=== PATIENT | female | born 1985 | race Caucasian/White ===

== ENCOUNTER 2021-05-17 10:29 | Emergency (ER) | payer OTHER, SELFPAY ==
--- NOTE | ~2021-05-17 | XR_ITS ---
EXAMINATION: XR LUMBOSACRAL SPINE CLINICAL INFORMATION: Pain COMPARISON: Radiographs lumbar spine 04/17/2017 TECHNIQUE: Three views of the lumbosacral spine. FINDINGS: There is normal lumbar segmentation with 5 nonrib-bearing lumbar vertebrae of normal height and normal lumbar lordosis. There is no lumbar vertebral compression, spondylolisthesis, destructive process. There are borderline degenerative disc changes L4-L5 similar to prior study. No interval disc narrowing. No erosive changes. The SI joints and visualized sacrum are unremarkable. XR/XR lumbar spine 2-3V IMPRESSION: Mild degenerative disc changes L4-L5, stable from 04/17/2017.
[2021-05-17 11:01] VITALS: BP 125/84; PULSE 78; RESP 16; TEMP 36.5; O2SAT 99; BMI 28.3
--- NOTE | 2021-05-17 11:13 | ED_ITS ---
HPI - Back Pain/Injury General Chief Complaint: Back Pain/Injury Stated Complaint: back pain Time Seen by Provider: 05/17/21 11:13 Source: patient Mode of arrival: ambulatory Limitations: no limitations History of Present Illness MD elicited complaint: back pain Onset (ago): week(s) (1) Timing: constant Severity: moderate Similar Symptoms Previously: No Quality: dull and aching Location: lumbar spine Radiation: buttocks Exacerbating factors: movement and walking Relieving factors: none Context: unknown Associated symptoms: denies other symptoms Treatments prior to arrival: acetaminophen Related Data Previous Rx's Medication Instructions Recorded cyclobenzaprine 10 mg PO TID PRN #14 tab 05/17/21 ibuprofen 600 mg PO Q6H PRN #30 tab 05/17/21 lidocaine 1 patch TOPICAL DAILY PRN #10 ea 05/17/21 Allergies Allergy/AdvReac Type Severity Reaction Status Date / Time penicillin V Allergy Unknown rash Verified 07/31/19 00:00 Penicillins [PENICILLINS] Allergy Unknown RASH Unverified 08/13/20 18:01 Review of Systems Review of Systems: Constitutional : No Weight loss, No Fever, No Chills, ENT/Mouth : No Hearing loss, No Ear Pain, No Nasal Congestion, No Sinus Pain, No Hoarseness, No sore throat, No Rhinorrhea, No Swallowing Difficulty Cardiovascular : No Chest Pain, No SOB Respiratory : No Cough, No Dyspnea Gastrointestinal : No Nausea, No Vomiting, No Diarrhea, No abdominal Pain, No Hematochezia, No Melena Genitourinary : No Dysuria, No Urinary Frequency, No Hematuria, No Urinary Incontinence, Musculoskeletal : positive back pain Skin : No Skin Lesions, No rash Neuro : No Weakness, No Numbness, No Paresthesias, no loss of bowel or bladder incontinence, no saddle anesthesia [facility] Past Medical History Attestation statement: The following information was validated with the patient. Medical History delivery delivered No known health problems Social History Social History (Updated 05/17/21 @ 11:28 by Makeda Garcia DO) Alcohol intake: never Patient Tobacco Use Status: Never used Tobacco Advance Directives: No Advance Directives Information Provided: No Patient : No Physical Exam Vital Signs: Vital Signs: Last Vital Signs Temp 97.7 F 05/17/21 11:01 Pulse 78 06/21/21 11:01 Resp 16 05/17/21 11:01 BP 125/84 05/17/21 11:01 Pulse Ox 99 05/17/21 11:01 Body Mass Index 28.3 Appearance: Alert. Oriented X3. No acute distress. Eyes: Pupils equal, round and reactive to light. ENT: Pharynx normal. Neck: Normal inspection. Neck supple. CVS: Normal heart rate and rhythm. Pulses normal. Respiratory: No respiratory distress. Breath sounds normal. Abdomen: Soft and non-tender. Back: ttp in lower sacral area no mass/rash noted Skin: Skin warm and dry. Normal skin color. Normal skin turgor. Extremities: No lower extremity edema. No calf ttp L5/5 bilaterally, SILT inner thigh Neuro: Oriented X 3. No motor deficit. No sensory deficit. Course Course Course Narrative: STABLE FOR DC MDM - Back Pain/Injury MDM Narrative Medical decision making narrative: 36 yo female otherwise healthy - here with lower back pain no concerning features at this time, no b/b incontinence, no saddle anesthesia, no AC therapy, no IVDA, NV intact - xrays ordered, IM toradol, lidocaine if negative xrays anticipate PCP referral or PT with low lifting as well as NSAIDs and MRs Discharge Plan Discharge Clinical Impression: Strain of lumbar region Qualifiers: Encounter type: initial encounter Qualified Code(s): S39.012A - Strain of muscle, fascia and tendon of lower back, initial encounter Patient Disposition: Home, Self-Care Instructions: Low Back Strain (ED), Degenerative Disc Disease (ED), Lower Back Exercises (ED) Additional Instructions: return to ED for any worsening symptoms or concerns There are borderline degenerative disc changes L4-L5 similar to prior study. No interval disc narrowing. No erosive changes. The SI joints and visualized sacrum are unremarkable Please get a primary care doctor you may benefit from a physical therapy referral Prescriptions: New cyclobenzaprine 10 mg tablet 10 mg PO TID PRN (Reason: muscle spasm) Qty: 14 RF: 0 lidocaine 4 % adhesive patch,medicated 1 patch topical DAILY PRN (Reason: pain) Qty: 10 RF: 0 ibuprofen 600 mg tablet 600 mg PO Q6H PRN (Reason: pain) Qty: 30 RF: 0 Stand Alone Forms: Work/School Release
[2021-05-17] MEDS: Lidocaine 4 % Patch ADH..PATCH 1 PATCH TRANSDERMA (11:35)
[2021-05-17] MEDS: Ketorolac Tromethamine 60 MG/2 ML VIAL IM (11:35)
== END 2021-05-17 12:02 | disposition home or self-care (01) ==
PROVIDERS: Emergency Provider Emergency Medicine; PCP Internal Medicine
DX: S39.012A Strain of muscle, fascia and tendon of lower back, initial encounter (principal); X58.XXXA Exposure to other specified factors, initial encounter; Y93.9 Activity, unspecified; Y92.9 Unspecified place or not applicable; Y99.9 Unspecified external cause status
CPT/HCPCS: 72100; 96372; 99283; 99284; J1885

== ENCOUNTER 2022-12-08 08:05 | Outpatient (REF) | payer MEDICAID, SELFPAY ==
[2022-12-08 09:26] LABS: Alanine Aminotransferase 14 U/L (0-31); Albumin Level 4.2 g/dL (3.5-5.0); Alkaline Phosphatase 53 U/L (39-117); Anion Gap 9 (12-20); Aspartate Amino Transferase 13 U/L (5-31); Bilirubin Total 0.3 mg/dL (0.0-1.0); Blood Urea Nitrogen 12 mg/dL (9-16); Calcium 9.4 mg/dL (8.4-10.2); Carbon Dioxide 27 mmol/L (22-29); Chloride 107 mmol/L (96-108); Cholesterol 167 mg/dL; Estimated Glomerular Filt Rate > 60; Glucose Fasting 79 mg/dL (60-99); HDL Cholesterol 52 mg/dL; LDL Cholesterol Calculated 101 mg/dl; Potassium 3.8 mmol/L (3.3-5.1); Sodium 139 mmol/L (135-145); Total Protein 7.4 g/dL (6.5-8.0); Triglycerides 74 mg/dL
== END 2022-12-08 08:06 | disposition home or self-care (01) ==
LOC: HO.LAB 08:05
PROVIDERS: PCP Internal Medicine; Visit Provider Internal Medicine
DX: Z00.00 Encounter for general adult medical examination without abnormal findings (principal)
CPT/HCPCS: 36415; 80053; 80061

== ENCOUNTER 2024-02-06 10:28 | Outpatient (AMB) | payer OTHER, SELFPAY ==
--- NOTE | 2024-02-06 10:32 | MHC.OFFWIV ---
Intake Vital Signs 02/06/24 10:51 Height 4 ft 11 in Weight 138 lb BMI 27.9 BP 112/76 Blood Pressure Location Lt brachial Position Sitting Pulse 94 Pulse Source Pulse Oximeter Temp 98.0 F Temp Source Temporal Artery Scan Pulse Oximetry (%) 98 Oxygen Delivery Method Room Air Intake Visit Reasons: EP body rash Intake Note: pt is here today for body rash started monday Patient Tobacco Use Status: Never used Tobacco Allergies penicillin V Allergy (Mild, Verified 02/06/24 10:46) rash Penicillins [PENICILLINS] Allergy (Mild, Verified 02/06/24 10:46) RASH Do you need a note to return to daycare/school/sports/work: No HPI HPI Comments History of Present Illness Details Patient is a 38yo F who presents to office with rash Ongoing since night Intermittent and resolves with Benadryl Located on arms, back, abdomen, legs States makes hands and feet swollen too No SOB, throat tightness, tongue edema, CP Was better yesterday but woke up with it today Unsure about irritants; denies new medicines, foods, perfumes, detergant, lotions, soaps, pets, living situations, bed sheets, travel [facility] Medical History (Updated 02/06/24 @ 11:04 by Irene Bedolla PA-C) Overweight (BMI 25.0-29.9) BRCA positive Surgical History delivery delivered H/O tubal ligation Family History Mother No problems noted. Father Stomach cancer Sister Breast cancer Sister Breast cancer Social History Housing: Apartment Alcohol intake: never Patient Tobacco Use Status: Never used Tobacco e-Cigarette/Vaping Use: Never Used Second Hand Smoke Exposure: No service: No Current occupational status: employed Current occupational exposures/hazards: No Cognitive needs: No Hearing needs: No Vision needs: No Review of Systems Const Denies body aches, Denies chills, Denies fatigue and Denies fever(s) Eyes Denies blurry vision ENT Denies sore throat, Denies throat swelling and Denies tongue swelling Card Denies chest pain and Denies dyspnea Resp Denies cough, Denies dyspnea and Denies wheezing Musc Denies back pain Skin/Breast Reports pruritus and Reports rash Endo Denies fatigue Aller/Immun Denies throat swelling, Denies tongue swelling and Denies wheezing Physical Exam Vital Signs: Last Vital Signs Temp 98.0 F 02/06/24 10:51 Pulse 94 02/06/24 10:51 BP 112/76 02/06/24 10:51 Pulse Ox 98 02/06/24 10:51 Oxygen Delivery Method Room Air 02/06/24 10:51 BMI result Body Mass Index 27.9 General: Non-toxic, NAD. Speaking full sentences. Skin: Warm dry throughout. She has one small erythematous macule to L froearm. Similar 3 slightly larger lesions L posterior lumbar paravertebral region. No lesions to face, hands, abdomen, legs Eye: EOMI HENT: Airway patent. Uvula midline. No pharyngeal erythema or edema. No MANAGER ART. Respiratory: No respiratory distress or stridor MSK: Full ROM extremities. Neurology: A/O. No aphasia or facial droop. Gait without abnormality Psych: Good mood and affect Assessment & Plan Assessment & Plan (1) Urticaria: Code(s): L50.9 - Urticaria, unspecified Plan: Patient seen and evaluated. She has urticaria resolved Pt showed me photos from this am on phone consistent with urticaria of unknown origin. Symptoms resolved with benadryl Discussed prednisone with food avoiding alcohol and nsaids She was educated on ER protocol for SOB, CP, throat tightness, tongue edema etc and is aware to call 911 Patient gave verbal understanding and had no additional questions or concerns at time of discharge All questions answered Medications: New prednisone 40 mg (2 x 20 mg) PO DAILY 8 tabs 0RF Coding Level of Care Code Est Pt Level 3 (30644) Diagnoses Urticaria L50.9
[2024-02-06 10:51] VITALS: BP 112/76; PULSE 94; TEMP 36.7; O2SAT 98; BMI 27.9
== END 2024-02-06 11:17 | disposition home or self-care (01) ==
PROVIDERS: PCP Internal Medicine; Visit Provider Physician Assistant
DX: L50.9 Urticaria, unspecified (principal)
CPT/HCPCS: 99213

== ENCOUNTER 2024-04-17 15:22 | Outpatient (AMB) | payer OTHER, SELFPAY ==
--- NOTE | 2024-04-17 15:25 | MHC.PC.OV ---
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 Accompanied by: Child Allergies penicillin V Allergy (Mild, Verified 04/17/24 15:46) rash Penicillins [PENICILLINS] Allergy (Mild, Verified 04/17/24 15:46) RASH Medication List - Last Reconciled 04/17/24 by Anjana Franco MD No Known Home Meds Tobacco use date assessed: 04/17/24 Dental Screening Dental Screen Date: 04/17/24 Did you have a dental visit in the last 12 months?: Yes Did you have a dental problem in the last 6 months where you did not have access to dental care?: No Was dental information given to patient?: Patient has dentist HPI HPI Comments History of Present Illness Details This is a 38-year-old female that comes for her physical exam. Labs Pap smear was about 2 years ago at [facility]. She wants a 2nd opinion in OBGYN. BRCA positive followed by breast surgeon. No chest pain or shortness on breath. No acute complaint. [facility] Medical History (Updated 04/17/24 @ 15:57 by Anjana Franco MD) Overweight (BMI 25.0-29.9) BRCA positive Surgical History H/O tubal ligation delivery delivered Family History Mother No problems noted. Father Stomach cancer Sister Breast cancer Sister Breast cancer Social History Housing: Apartment Alcohol intake: never Patient Tobacco Use Status: Never used Tobacco e-Cigarette/Vaping Use: Never Used Second Hand Smoke Exposure: No service: No Current occupational status: employed Current occupational exposures/hazards: No Cognitive needs: No Hearing needs: No Vision needs: No Questionnaire PHQ-9 Over the last 2 weeks, how often have you been bothered by any of the following problems? 1. Little interest or pleasure in doing things: not at all 2. Feeling down, depressed, or hopeless: not at all 3. Trouble falling or staying asleep, or sleeping too much: not at all 4. Feeling tired or having little energy: not at all 5. Poor appetite or overeating: not at all 6. Feeling bad about yourself - or that you are a failure or have let yourself or your family down: not at all 7. Trouble concentrating on things, such as reading the newspaper or watching television: not at all 8. Moving or speaking so slowly that other people could have noticed. Or the opposite - being so fidgety or restless that you have been moving around a lot more than usual: not at all 9. Thoughts that you would be better off or of hurting yourself in some way: not at all Total score: 0 Depression Screening Interpretation: Negative Depression Screening Done: Yes 63946 - PHQ-9 Billing: Yes Source: Developed by Drs. Juventino Negron, Layla Cook, Michel Mane and colleagues, with an educational aaron from [employer]. Thrive Questionnaire Date Thrive assessed: 04/17/24 I am a: Patient What is your living situation today?: I have a steady place to live Within the past 12 months, did the food you bought not last and you didn't have the money to get more?: Never true Within the past 12 months, did you worry whether your food would run out before you got money to buy more?: Never true Do you have trouble paying for medicines?: No Do you have trouble getting transportation to medical appointments?: No Do you have trouble paying your heating and electricity bill?: No Do you have trouble taking care of your child, family member or friend?: No Do you have trouble with day-to-day activities such as bathing, preparing meals, shopping, managing finances, etc.?: No Are you currently unemployed and looking for a job?: No Are you interested in more education?: No Please select the resources that you would like help with: None Currently or been in a relationship where the following occur: no concerns reported THRIVE Score: 0 AUDIT C Alcohol Use Questionnaire (AUDIT-C) 1. How often do you have a drink containing alcohol?: Never Total Score: 0 BOLIVAR-7 AMB Questionnaire BOLIVAR-7 Date BOLIVAR - 7 assessed: 04/17/24 Feeling nervous, anxious, or on edge: 1 = Several days Not being able to stop or control worryin = Not at all Worrying too much about different things: 0 = Not at all Trouble relaxin = Several days Being so restless that it is hard to sit still: 0 = Not at all Becoming easily annoyed or irritable: 0 = Not at all Feeling afraid as if something awful might happen: 0 = Not at all Total BOLIVAR-7 score (0-4 normal; 5-9 mild; 10-14 moderate; 15-21 severe): 2 Source: Developed by Drs. Juventino Negron, Layla Cook, Michel Mane and colleagues, with an educational aaron from [employer]. BOLIVAR-7 Assessment Billing BOLIVAR-7 Assessment Tool: BOLIVAR-7 Assessment 50022 Review of Systems Const All systems reviewed & are unremarkable except as noted in HPI and below Eyes Reports no additional complaints, Denies change in vision and Denies other visual disturbances Card Denies chest pain at rest, Denies chest pain with activity, Denies edema, Denies irregular heart rhythm, Denies claudication, Denies dyspnea, Denies dyspnea on exertion, Denies orthopnea, Denies paroxysmal nocturnal dyspnea and Denies slow heart rate Resp Denies cough, Denies dyspnea and Denies dyspnea on exertion GI Denies abdominal pain, Denies change in bowel habits, Denies excessive flatus, Denies nausea and Denies vomiting Denies urinary incontinence, Denies urinary hesitancy and Denies urinary urgency Musc Denies abnormal gait, Denies atrophy, Denies deformity and Denies limited range of motion Skin/Breast Denies bleeding lesions, Denies changing lesions and Denies rash Neuro Denies abnormal gait and Denies lack of coordination Physical exam (Primary Care) Vital Signs: Last Vital Signs BP 102/64 04/17/24 15:27 BMI result Body Mass Index 27.5 Tobacco/Smoking Status: Tobacco use Status Tobacco use date assessed 04/17/24 04/17/24 15:34 Patient Tobacco Use Status Never used Tobacco 04/17/24 15:34 e-Cigarette/Vaping Use Never Used 04/17/24 15:34 PHQ-9: PHQ-9 Score PHQ-9: Total score 0 04/17/24 15:49 Depression Screening Interpretation: Negative Thrive Assessment: Date of Thrive Assessment Date Thrive assessed 04/17/24 04/17/24 15:34 Currently or been in a relationship where the following occur: no concerns reported Const Orientation/consciousness: patient oriented x3 HENDC Head: Yes normal to inspection, Yes normocephalic and Yes atraumatic Ears: external ears normal Eyes General: appearance normal, both eyes and all related structures Eyelids: Yes eyelids normal Conjunctivae: conjunctivae normal Neck Neck: Yes normal visual inspection and Yes supple Resp Effort & Inspection: normal respiratory effort Auscultation: clear to auscultation bilaterally Cardio Jugular venous distension: no JVD Rate: regular rate Rhythm: regular rhythm Heart sounds: S1 normal heart sound present and S2 normal heart sound present GI Inspection: Yes normal to inspection Palpation (GI): Soft to palpation and nontender Auscultation: normal bowel sounds Skin General skin exam: no rashes or lesions noted Neuro General: patient oriented x3 and no focal motor deficits Extrem General: Yes full ROM Psych Appearance: grossly normal Assessment and Plan Assessment & Plan (1) Encounter for physical examination: Code(s): Z00.00 - Encounter for general adult medical examination without abnormal findings Plan: Repeat in a year. Orders: Referrals [facility] PLANNING DIRECTOR Referral Z12.4 - Encounter for screening for malignant neoplasm of cervix, Z15.01 - Genetic susceptibility to malignant neoplasm of breast, Z15.09 - Genetic susceptibility to other malignant neoplasm Coding Level of Care Code Est Pt Prev Care 18-39y(62753) Diagnoses Encounter for physical examination Z00.00 Additional Codes BOLIVAR-7 Assessment Billing - BOLIVAR-7 Assessment Tool: BOLIVAR-7 Assessment 81143 ([id number]) Time Spent (min) 31
[2024-04-17 15:27] VITALS: BP 102/64; BMI 27.5
== END 2024-04-17 16:02 | disposition home or self-care (01) ==
PROVIDERS: PCP Internal Medicine; Visit Provider Internal Medicine
DX: Z00.00 Encounter for general adult medical examination without abnormal findings (principal)
CPT/HCPCS: 99395

== ENCOUNTER 2024-07-31 10:33 | Outpatient (AMB) | payer OTHER, SELFPAY ==
[2024-07-31 11:01] VITALS: BP 104/76; PULSE 61; TEMP 36.8; O2SAT 99; BMI 26.9
--- NOTE | 2024-07-31 11:01 | MHC.OFFWIV ---
Intake Vital Signs 07/31/24 11:01 Height 4 ft 11 in Weight 133 lb BMI 26.9 BP 104/76 Blood Pressure Location Lt brachial Position Sitting Pulse 61 Pulse Source Pulse Oximeter Temp 98.2 F Temp Source Oral Pulse Oximetry (%) 99 Oxygen Delivery Method Room Air Intake Visit Reasons: EP RT hand swelling/pain Intake Note: pt c/o RT hand swelling and pain. Started Monday Patient Tobacco Use Status: Never used Tobacco Allergies penicillin V Allergy (Mild, Verified 07/31/24 11:05) rash Penicillins [PENICILLINS] Allergy (Mild, Verified 07/31/24 11:05) RASH Do you need a note to return to daycare/school/sports/work: Yes HPI EP RT hand swelling/pain HPI Details This note is constructed using voice recognition software. While every effort has been made to ensure accuracy, cafeteria counter attendant errors may have been included. The patient is a 39 year old female who presents to the clinic today with 3 day history of right hand swelling and pain. She denies any known trauma to the area, reports that she woke up with this. She is right-hand dominant, the pain is reported to be in the palm of the right hand with swelling from palm traveling up the 2nd digit. She initially thought it was related to overuse from cutting in cooking, over the pain seemed to not improve despite rest. She denies fever, chills, warmth to the area. [facility] Medical History Overweight (BMI 25.0-29.9) BRCA positive Surgical History H/O tubal ligation delivery delivered Family History Mother No problems noted. Father Stomach cancer Sister Breast cancer Sister Breast cancer Social History Housing: Apartment Alcohol intake: never Patient Tobacco Use Status: Never used Tobacco e-Cigarette/Vaping Use: Never Used Second Hand Smoke Exposure: No service: No Current occupational status: employed Current occupational exposures/hazards: No Cognitive needs: No Hearing needs: No Vision needs: No Review of Systems Const All systems reviewed & are unremarkable except as noted in HPI and below Physical Exam Vital Signs: Last Vital Signs Temp 98.2 F 07/31/24 11:01 Pulse 61 07/31/24 11:01 BP 104/76 07/31/24 11:01 Pulse Ox 99 07/31/24 11:01 Oxygen Delivery Method Room Air 07/31/24 11:01 BMI result Body Mass Index 26.9 Const General: cooperative, healthy appearing, comfortable, no acute distress and well developed Orientation/consciousness: patient oriented x3 Limitations: no limitations Resp Effort & Inspection: normal respiratory effort and able to speak in complete sentences Neuro General: patient oriented x3 Extrem Other: Right hand with obvious swelling to the palmar surface, at the base of the 2nd proximal phalanges. No erythema or warmth. Reduced flexion and extension due to pain. Intact distal neurovascular exam. Strength/filler in strength reduced 4/5. Assessment & Plan Assessment & Plan (1) Right hand pain: Code(s): M79.641 - Pain in right hand Plan: No obvious fracture on x-ray. We will await radiology read. Isidoro wrap applied, advised ice, elevation,, compression. Advised patient to follow up with worsening symptoms or failure to resolve. Advised patient to use NSAIDs [id number] as needed. (2) Swelling of right hand: Code(s): M79.89 - Other specified soft tissue disorders Plan: Appears consistent with likely a strain in the hand, however advised patient to monitor for any signs infection including erythematous streaking, or worsening inflammation or pain. Plan See above for full details and plan. Orders: Orders XR hand RT 2V Today M79.641 - Pain in right hand Coding Level of Care Code Est Pt Level 4 (09386) Diagnoses Right hand pain M79.641 Swelling of right hand M79.89
== END 2024-07-31 16:13 | disposition home or self-care (01) ==
PROVIDERS: PCP Internal Medicine; Visit Provider Registered Nurse
DX: M79.641 Pain in right hand (principal); M79.89 Other specified soft tissue disorders
CPT/HCPCS: 99214

== ENCOUNTER 2024-07-31 11:27 | Outpatient (REF) | payer OTHER, SELFPAY ==
--- NOTE | ~2024-07-31 | XR_ITS ---
EXAMINATION: XR HAND, RIGHT CLINICAL INFORMATION: Pain in right hand. Swelling palmar surface. COMPARISON: None available. TECHNIQUE: PA, lateral, and oblique views of the right hand. FINDINGS: No displaced acute fracture. Alignment is anatomic. Joint spaces appear maintained. Soft tissue swelling more pronounced along the thenar aspect. No abnormal soft tissue calcifications. The bones and soft tissues are normal. No fracture. Alignment is anatomic. Joint spaces are maintained. No erosions or soft tissue calcifications. XR/XR hand RT min 3V IMPRESSION: No displaced acute fractures involving the right hand. Soft tissue swelling more pronounced along the thenar aspect. Electronically signed by: Akhil Dawkins MD 07/31/2024 03:56 PM EDT
== END 2024-07-31 11:28 | disposition home or self-care (01) ==
LOC: HO.HMGCX 11:27
PROVIDERS: PCP Internal Medicine; Visit Provider Registered Nurse
DX: M79.641 Pain in right hand (principal)
CPT/HCPCS: 73130

== ENCOUNTER 2024-12-11 11:53 | Outpatient (AMB) | payer OTHER, SELFPAY ==
--- NOTE | 2024-12-11 11:57 | AM.OFFWIN_ITS ---
Intake Vital Signs 12/11/24 12:06 Weight 133 lb BP 122/70 Blood Pressure Location Lt brachial Position Sitting Pulse 100 Pulse Source Pulse Oximeter Temp 99.8 F Temp Source Oral Pulse Oximetry (%) 97 Oxygen Delivery Method Room Air Intake Visit Reasons: EP cough, fever, mid back pain Intake Note: Patient here for cough, fever, chest tightness and headaches that started monday. Patient Tobacco Use Status: Never used Tobacco Allergies penicillin V Allergy (Mild, Verified 12/11/24 12:06) rash Penicillins [PENICILLINS] Allergy (Mild, Verified 12/11/24 12:06) RASH Do you need a note to return to daycare/school/sports/work: Yes HPI HPI Comments History of Present Illness Details She presents to office with cough since Monday She has lung pain, headache Fever Monday//Monday; none today No congestion, St + body aches and fatigue She is unsure about sick contacts Patient has tried cold and flu OTC medicine, ibuprofen PFSH Medical History Overweight (BMI 25.0-29.9) BRCA positive Surgical History H/O tubal ligation delivery delivered Family History Mother No problems noted. Father Stomach cancer Sister Breast cancer Sister Breast cancer Social History Housing: Apartment Alcohol intake: never Patient Tobacco Use Status: Never used Tobacco e-Cigarette/Vaping Use: Never Used Second Hand Smoke Exposure: No service: No Current occupational status: employed Current occupational exposures/hazards: No Cognitive needs: No Hearing needs: No Vision needs: No Review of Systems Const Reports chills, Reports fatigue, Reports fever(s), Reports headache(s) and Reports poor appetite Eyes Denies change in vision ENT Denies dizziness, Denies otalgia, Reports headache(s) and Denies sore throat Card Denies chest pain and Denies syncope Resp Reports chest congestion, Reports cough and Reports pain with cough GI Denies abdominal pain Musc Reports myalgias Neuro Denies dizziness, Denies syncope and Reports headache(s) Endo Reports fatigue Physical Exam Vital Signs: Last Vital Signs Temp 99.8 F 12/11/24 12:06 Pulse 100 12/11/24 12:06 BP 122/70 12/11/24 12:06 Pulse Ox 97 12/11/24 12:06 Oxygen Delivery Method Room Air 12/11/24 12:06 General: Non-toxic, NAD. Speaking full sentences. Skin: Warm dry throughout Eye: EOMI HENT: Airway patent. Uvula midline. No pharyngeal erythema or edema. No DIRECT SUPPORT STAFF MEMBER. Bilateral canals clear. TM non-erythematous, non-bulging. No TM perforation or hemotympanum noted. Respiratory: + crackles L base. No wheezes Cardiac: RRR. No murmur MSK: Full ROM extremities. Neurology: Alertt. No aphasia or facial droop. Gait without abnormality Psych: Good mood and affect Assessment & Plan Assessment & Plan (1) Community acquired bacterial pneumonia: Code(s): J15.9 - Unspecified bacterial pneumonia Plan: Patient seen and evaluated. I auscultated crackles at L base Will tx with doxycycline; with food. Advised she should have improved symptoms and if persistent fever or worsening symtoms, be re-evaluated We discussed maybe needing chest xray if not resolved Any CP, SOB go to ER Patient gave verbal understanding and had no additional questions or concerns at time of discharge All questions answered Medications: New doxycycline hyclate 100 mg PO BID 20 tabs 0RF Coding Level of Care Code Est Pt Level 3 (44870) Diagnoses Community acquired bacterial pneumonia J15.9
[2024-12-11 12:06] VITALS: BP 122/70; PULSE 100; TEMP 37.7; O2SAT 97
== END 2024-12-11 12:21 | disposition home or self-care (01) ==
PROVIDERS: PCP Internal Medicine; Visit Provider Physician Assistant
DX: J15.9 Unspecified bacterial pneumonia (principal)

== ENCOUNTER → 2024-12-11 11:53 | Outpatient (BNVA) | payer OTHER, SELFPAY | PROVIDERS: PCP Internal Medicine; Visit Provider Physician Assistant | DX: J15.9 Unspecified bacterial pneumonia (principal) | CPT/HCPCS: 99212 ==

== ENCOUNTER 2025-04-29 09:32 | Outpatient (AMB) | payer OTHER, SELFPAY ==
--- NOTE | 2025-04-29 09:35 | MHC.PC.OV ---
Vital Signs 04/29/25 09:36 Height 4 ft 11 in Weight 134 lb BMI 27.1 BP 116/70 Blood Pressure Location Lt brachial Position Sitting Intake Visit Reasons: Annual Exam Intake Note: Patient here for a physical exam Studio Producer Required: No Accompanied by: Self / Same As Patient Allergies penicillin V Allergy (Mild, Verified 04/29/25 09:50) rash Penicillins [PENICILLINS] Allergy (Mild, Verified 04/29/25 09:50) RASH Medication List - Last Reconciled 04/29/25 by Anjana Franco MD No Known Home Meds Tobacco use date assessed: 04/29/25 Dental Screening Dental Screen Date: 04/29/25 Did you have a dental visit in the last 12 months?: Yes Did you have a dental problem in the last 6 months where you did not have access to dental care?: No Was dental information given to patient?: Patient has dentist HPI HPI Comments History of Present Illness Details The patient is a 39-year-old female presenting for an annual physical examination. She has not had laboratory tests in the past two years and reports a penicillin allergy with rash as the reaction. She is not currently on any medications. The patient underwent tubal ligation following three previous deliveries. Regarding her family history, her father had stomach cancer, and her sisters have had varying experiences with breast cancer. The patient's mood is being managed with therapeutic interventions. She leads a lifestyle free from smoking and alcohol consumption. She has completed an MRI in February, which was interpreted as normal, under ongoing consultation with a breast surgeon due to BRCA positive status. The interval since her last tetanus vaccination exceeds ten years, and she has no current symptoms requiring urgent reevaluation. Updated screening for metabolic and organ function is necessary. Mild major depression is follow by counseling with a PHQ-9 of 4. - Administer tetanus vaccine given uncertainty if it has been more than ten years. - Initiate laboratory tests for glucose, renal function, hepatic function, and lipid profile given the two-year lapse since last testing. - Continued follow-up with breast surgeon after recent breast MRI came back normal. - Follow-up care for depression with a therapist as currently being executed. [facility] Medical History (Updated 04/29/25 @ 10:07 by Anjana Franco MD) Overweight (BMI 25.0-29.9) BRCA positive Surgical History H/O tubal ligation delivery delivered Family History Mother No problems noted. Father Stomach cancer Sister Breast cancer Sister Breast cancer Social History Housing: Apartment Alcohol intake: never Patient Tobacco Use Status: Never used Tobacco e-Cigarette/Vaping Use: Never Used Second Hand Smoke Exposure: No service: No Current occupational status: employed Current occupational exposures/hazards: No Cognitive needs: No Hearing needs: No Vision needs: No Questionnaire PHQ-9 Over the last 2 weeks, how often have you been bothered by any of the following problems? 1. Little interest or pleasure in doing things: not at all 2. Feeling down, depressed, or hopeless: several days 3. Trouble falling or staying asleep, or sleeping too much: several days 4. Feeling tired or having little energy: not at all 5. Poor appetite or overeating: not at all 6. Feeling bad about yourself - or that you are a failure or have let yourself or your family down: several days 7. Trouble concentrating on things, such as reading the newspaper or watching television: several days 8. Moving or speaking so slowly that other people could have noticed. Or the opposite - being so fidgety or restless that you have been moving around a lot more than usual: not at all 9. Thoughts that you would be better off or of hurting yourself in some way: not at all Total score: 4 Depression Screening Interpretation: Positive Depression Screening Follow-up: Existing condition, Community Mental Health Worker F/U and Follow-up Visit Requested Depression Screening Done: Yes 46475 - PHQ-9 Billing: Yes Source: Developed by Drs. Juventino Negron, Layla Cook, Michel Mane and colleagues, with an educational aaron from [employer]. Thrive Questionnaire Date Thrive assessed: 04/23/25 I am a: Patient What is your living situation today?: I have a steady place to live Within the past 12 months, did the food you bought not last and you didn't have the money to get more?: Never true Within the past 12 months, did you worry whether your food would run out before you got money to buy more?: Never true Do you have trouble paying for medicines?: No Do you have trouble getting transportation to medical appointments?: No Do you have trouble paying your heating and electricity bill?: No Do you have trouble taking care of your child, family member or friend?: No Do you have trouble with day-to-day activities such as bathing, preparing meals, shopping, managing finances, etc.?: No Are you currently unemployed and looking for a job?: Yes Are you interested in more education?: Yes Please select the resources that you would like help with: None Currently or been in a relationship where the following occur: I choose not to answer THRIVE Score: 0 AUDIT C Alcohol Use Questionnaire (AUDIT-C) 1. How often do you have a drink containing alcohol?: Never Total Score: 0 Score Reviewed/Action Taken: No BOLIVAR-7 AMB Questionnaire BOLIVAR-7 Date BOLIVAR - 7 assessed: 04/29/25 Feeling nervous, anxious, or on edge: 0 = Not at all Not being able to stop or control worryin = Not at all Worrying too much about different things: 3 = Nearly every day Trouble relaxin = Several days Being so restless that it is hard to sit still: 0 = Not at all Becoming easily annoyed or irritable: 0 = Not at all Feeling afraid as if something awful might happen: 0 = Not at all Total BOLIVAR-7 score (0-4 normal; 5-9 mild; 10-14 moderate; 15-21 severe): 4 Source: Developed by Drs. Juventino Negron, Layla Cook, Michel Mane and colleagues, with an educational aaron from [employer]. BOLIVAR-7 Assessment Billing BOLIVAR-7 Assessment Tool: BOLIVAR-7 Assessment 70034 Review of Systems Const All systems reviewed & are unremarkable except as noted in HPI and below Card Denies chest pain at rest, Denies chest pain with activity, Denies edema, Denies irregular heart rhythm, Denies claudication, Denies dyspnea, Denies dyspnea on exertion, Denies orthopnea, Denies paroxysmal nocturnal dyspnea and Denies slow heart rate Resp Denies cough, Denies dyspnea and Denies dyspnea on exertion GI Denies abdominal pain, Denies change in bowel habits, Denies excessive flatus, Denies nausea and Denies vomiting Denies urinary incontinence, Denies urinary hesitancy and Denies urinary urgency Musc Denies abnormal gait, Denies atrophy, Denies deformity and Denies limited range of motion Skin/Breast Denies bleeding lesions, Denies changing lesions and Denies rash Neuro Denies abnormal gait, Denies behavioral changes, Denies confusion and Denies lack of coordination Psych Denies behavioral changes and Denies confusion Endo Denies cold intolerance Physical exam (Primary Care) Vital Signs: Last Vital Signs BP 116/70 04/29/25 09:36 BMI result Body Mass Index 27.1 Tobacco/Smoking Status: Tobacco use Status Tobacco use date assessed 04/29/25 04/29/25 09:40 Patient Tobacco Use Status Never used Tobacco 04/29/25 09:40 e-Cigarette/Vaping Use Never Used 04/29/25 09:40 PHQ-9: PHQ-9 Score PHQ-9: Total score 4 04/29/25 09:57 Depression Screening Interpretation: Positive Depression Screening Follow-up: Existing condition, Community Mental Health Worker F/U and Follow-up Visit Requested Thrive Assessment: Date of Thrive Assessment Date Thrive assessed 04/23/25 04/29/25 09:40 Currently or been in a relationship where the following occur: I choose not to answer Const General: No confusion Orientation/consciousness: patient oriented x3 and No confusion HENMT Head: Yes normal to inspection, Yes normocephalic and Yes atraumatic Ears: external ears normal Eyes General: appearance normal, both eyes and all related structures Eyelids: Yes eyelids normal Conjunctivae: conjunctivae normal Neck Neck: Yes normal visual inspection and Yes supple Resp Effort & Inspection: normal respiratory effort Auscultation: clear to auscultation bilaterally Cardio Jugular venous distension: no JVD Rate: regular rate Rhythm: regular rhythm Heart sounds: S1 normal heart sound present and S2 normal heart sound present GI Inspection: Yes normal to inspection Palpation (GI): Soft to palpation and nontender Auscultation: normal bowel sounds Skin General skin exam: no rashes or lesions noted Neuro General: patient oriented x3, no focal motor deficits and No confusion Extrem General: Yes full ROM Psych Appearance: grossly normal Immunizations Boostrix Tdap 2.5 Lf unit-8 mcg-5 Lf/0.5 mL intramuscular syringe Performing Provider: Anjana Franco MD Performing [facility] [place] [facility] Administered by: CORINNA Terry on 04/29/25 10:01 Dose Route Admin Location Dispensed Lot Number Expiration Date [facility] Communications Designer 0.5 mL IM Right Deltoid 0.5 mL [id number] 07/25/27 [id number] [employer] VIS Given Date VIS Provided VIS Publication Date 04/29/25 Single Vaccine 24 Eligibility Eligibility Date Funding Source Not [facility] Eligible 04/29/25 Private Coding Level of Care Code Est Pt Prev Care 18-39y(25322) Diagnoses Encounter for physical examination Z00.00 Mild major depression F32.0 Additional Codes PHQ-9 - 92683 - PHQ-9 Billing: Yes ([id number]) BOLIVAR-7 Assessment Billing - BOLIVAR-7 Assessment Tool: BOLIVAR-7 Assessment 04914 ([id number]) Time Spent (min) 30 Assessment & Plan Assessment & Plan (1) Encounter for physical examination: Code(s): Z00.00 - Encounter for general adult medical examination without abnormal findings Category: Medical (2) Mild major depression: Comment: Follow by counseling Code(s): F32.0 - Major depressive disorder, single episode, mild Category: Medical Plan In preparation for ongoing health maintenance, a tetanus vaccine has been scheduled given the uncertainty of recent administration. Initiated laboratory tests including glucose, renal and liver function, and lipid profiles due to a two-year lapse in routine screening. Depression remains under therapeutic supervision. No signs of recurrence were noted in her recent breast MRI, maintaining follow-up with her surgeon. Patient remains committed to her neurological health through regular therapy sessions. Patient was informed and verbally consented to the use of an ambient scribe for clinic note documentation during this visit. During the visit, I discussed the importance of continued health maintenance including potential update for the tetanus vaccine since the timeline since last administration is uncertain. I ordered routine lab work including lipid profiles, glucose, renal and hepatic function tests for thorough evaluation due to the considerable time since last completed. The patient will remain under the care of her therapist for ongoing mild depression. We conversed about the risks of neglecting routine screenings particularly in the context of family cancer history and discussed maintaining follow-up appointments with her breast surgeon following standard procedures and reinforcing the necessity of routine surveillance. Orders: Orders TDaP Immunization Today Z23 - Encounter for immunization Lipid Panel Today Z00.00 - Encounter for general adult medical examination without abnormal findings Comprehensive [place]. Panel Fast Today Z00.00 - Encounter for general adult medical examination without abnormal findings Patient Instructions: - Schedule and receive a tetanus vaccine booster. - Complete the laboratory tests for glucose, renal, liver, and cholesterol with fasting for accurate results. - Continue attending regular therapy sessions for depression. - Maintain follow-up appointments and discussions with breast surgeon. - Reach out if experiencing symptoms like chest pain or shortness of breath.
[2025-04-29 09:36] VITALS: BP 116/70; BMI 27.1
--- OUTSIDE RECORDS SUMMARY | 2025-04-29 10:37 | XMS_ITS | Clinical Summary ---
Author Organization [facility] [facility] ity Address [address] [place] [address] Care Team Providers Care Senior Management Consultant Name Role Phone Zulay Hathaway MD Primary Care Provider [phone] Surgical History Surgery Date Site/Laterality Comments SECTION PROCEDURE: HISTORICAL ; COMMENT: x1 Family History Relation Name Status Comments Father dm, htn, o f stomach cancer Mother Alive dm, Social History Tobacco Use Types Packs/Day Years Used Date Smoking Tobacco: Never Alcohol Use Standard Drinks/Week Comments No 0 (1 standard drink = 0.6 oz pur e alcohol) Comments Unknown Sex and Gender Information Value Date Recorded Sex Assigned at Not on file Legal Sex Female 4:45 PM EST Gender Identity Not on file Sexual Orientation Not on file Obstetrics History Plan of Treatment Health Maintenance Due Date Last Done Comments DTaP,Tdap,and Td Vaccines (1 - Tdap) 2006 Hepatitis B Vaccines (1 of 3 - 19+ 3-dose series) 2006 Cervical Cancer Screening: P ap Smear 2008 COVID-19 Vaccine (2023-2 5 season) 2024 Influenza Vaccine (Season Ended) 2025 HIB Vaccines Aged Out No longer eligi ble based on patient's age to complete this topic HPV Vaccines Aged Out No longer eligi ble based on patient's age to complete this topic Hepatitis A Vaccines Aged Out No long er eligible based on patient's age to complete this topic IPV Vaccines Aged Out No longer eligi ble based on patient's age to complete this topic MMR Vaccines Aged Out No longer eligi ble based on patient's age to complete this topic Meningococcal ACWY Vaccine Aged Out N o longer eligible based on patient's age to complete this topic Meningococcal B Vaccine Aged Out No l onger eligible based on patient's age to complete this topic Pneumococcal Vaccine: Pediat rics (0 to 5 Years) and At-Risk Patients (6 to 64 Years) Aged Out No longer eligible b ased on patient's age to complete this topic RSV Immunization Patients Un moreno 20 months Aged Out No longer eligible b ased on patient's age to complete this topic Varicella Vaccines Aged Out No longer eligible based on patient's age to complete this topic Care Teams Senior Management Consultant Relationship Specialty Start Date End Date Zulay Hathaway MD [address] [place] [address] PCP - General Internal Medicine 10/31/13
== END 2025-04-29 10:06 | disposition home or self-care (01) ==
LOC: HO.HMCH 09:33
PROVIDERS: PCP Internal Medicine; Visit Provider Internal Medicine
DX: Z00.00 Encounter for general adult medical examination without abnormal findings (principal); F32.0 Major depressive disorder, single episode, mild; Z23 Encounter for immunization

== ENCOUNTER → 2025-04-29 09:32 | Outpatient (BNVA) | payer OTHER, SELFPAY | PROVIDERS: PCP Internal Medicine; Visit Provider Internal Medicine | DX: Z00.00 Encounter for general adult medical examination without abnormal findings (principal); F32.0 Major depressive disorder, single episode, mild; Z23 Encounter for immunization | CPT/HCPCS: 90471; 90715; 96127; 99395 ==

== ENCOUNTER 2025-05-20 09:47 | Outpatient (REF) | payer OTHER, SELFPAY ==
--- OUTSIDE RECORDS SUMMARY | 2025-05-20 10:42 | XMS_ITS | Clinical Summary ---
Author Organization [employer] Address [address] [place] [address] Care Team Providers Care Chuck Splitter Name Role Phone Unavailable Primary Care Provider Unavailabl e Social History Tobacco Use Types Packs/Day Years Used Date Smoking Tobacco: Never Assessed Comments Unknown Sex and Gender Information Value Date Recorded Sex Assigned at Female 09/26/2022 10:19 AM EDT Legal Sex Female 10:19 AM EDT Gender Identity Not on file Sexual Orientation Not on file Plan of Treatment Health Maintenance Due Date Last Done Comments Depression Screening 1987 Disability Screening 1987 Alcohol/Substance Use Screening 1999 Tobacco Screening 1999 Family Planning (PISQ) 2002 DTaP/Tdap/Td Vaccines (1 - Tdap) 2006 Hepatitis B Vaccines (1 of 3 - 19+ 3-dose series) 2006 Pap Smear 2008 Cervical Cancer Screening 2017 HPV/Cotest 2017 COVID-19 Vaccine (1 - 2023-2 5 season) 2024 Influenza Vaccine (Season Ended) 2025 Zoster Vaccines (1 of 2) 2037 RSV Patients and Pa tients Aged 60 years or older (1 - 1-dose 75+ series) 2062 HIB Vaccines Aged Out No longer eligi [...] patient's age to complete this topic Meningococcal Vaccine Aged Out No cat ivory eligible based on patient's age to complete this topic Pneumococcal Vaccine: Pediat rics (0 to 5 Years) and At-Risk Patients (6 to 49) Years Aged Out No longer eligible b ased on patient's age to complete this topic RSV under 20 months Aged Out No longe r eligible based on patient's age to complete this topic Rotavirus Vaccines Aged Out No longer eligible based on patient's age to complete this topic
[2025-05-20 11:10] LABS: Alanine Aminotransferase 16 U/L (0-31); Albumin Level 4.2 g/dL (3.5-5.0); Alkaline Phosphatase 46 U/L (39-117); Anion Gap 10 (12-20); Aspartate Amino Transferase 18 U/L (5-31); Bilirubin Total 0.3 mg/dL (0.0-1.0); Blood Urea Nitrogen 12 mg/dL (9-16); Carbon Dioxide 25 mmol/L (22-29); Chloride 110 mmol/L (96-108); Cholesterol 162 mg/dL (<200); Estimated Glomerular Filt Rate > 60; Glucose Fasting 83 mg/dL (60-99); HDL Cholesterol 44 mg/dL (>40); LDL Cholesterol Calculated 96 mg/dL (<100); Potassium 3.8 mmol/L (3.3-5.1); Sodium 141 mmol/L (135-145); Triglycerides 110 mg/dL (<150)
== END 2025-05-20 09:48 | disposition home or self-care (01) ==
LOC: HO.LAB 09:47
PROVIDERS: PCP Internal Medicine; Visit Provider Internal Medicine
DX: Z00.00 Encounter for general adult medical examination without abnormal findings (principal)
CPT/HCPCS: 36415; 80053; 80061

== ENCOUNTER 2025-07-10 11:05 | Outpatient (AMB) | payer OTHER, SELFPAY ==
--- NOTE | 2025-07-10 11:30 | AM.OFFWIN_ITS ---
Intake Vital Signs 07/10/25 11:31 Height 4 ft 11 in Weight 134 lb 2 oz BMI 27.1 BP 112/56 L Blood Pressure Location Lt brachial Position Sitting Pulse 106 H Pulse Source Pulse Oximeter Temp 99.1 F Temp Source Oral Pulse Oximetry (%) 99 Oxygen Delivery Method Room Air Intake Visit Reasons: EP-stomach pain, diarrhea, chills Patient Tobacco Use Status: Never used Tobacco Rn Interventional Required: No Is last menstrual period known: Yes Last menstrual period: 07/03/25 Post menopausal: No Patient : No Allergies penicillin V Allergy (Mild, Verified 07/10/25 11:36) rash Penicillins (PENICILLINS) Allergy (Mild, Verified 07/10/25 11:36) RASH HPI HPI Comments History of Present Illness0 Details 40 y/o Female patient who presents to hospital for special surgery walk in clinic with c/o Generalized abdominal pain since yesterday. Reports pain started at right lower abdomen which she attributed to Ovulation pain. She had breakfast and lunch that afternoon then she started experiencing abdominal pain all over abdomen, associated with Nausea, vomiting and diarrhea. She had one episode of Vomiting and diarrhea - symptoms have since subsided but still has discomfort. She has not taken any OTC remedies. [facility] Medical History (Updated 07/10/25 @ 11:56 by Soledad Reid NP) Generalized abdominal pain Overweight (BMI 25.0-29.9) BRCA positive Surgical History H/O tubal ligation delivery delivered Family History Mother No problems noted. Father Stomach cancer Sister Breast cancer Sister Breast cancer Social History Housing: Apartment Alcohol intake: never Patient Tobacco Use Status: Never used Tobacco e-Cigarette/Vaping Use: Never Used Second Hand Smoke Exposure: No Patient : No service: No Current occupational status: employed Current occupational exposures/hazards: No Cognitive needs: No Hearing needs: No Vision needs: No Female Reproductive History Menstrual Date of last menstrual period: 07/03/25 Review of Systems Const All systems reviewed & are unremarkable except as noted in HPI and below Physical Exam Vital Signs: Last Vital Signs Temp 99.1 F 07/10/25 11:31 Pulse 106 H 07/10/25 11:31 BP 112/56 L 07/10/25 11:31 Pulse Ox 99 07/10/25 11:31 Oxygen Delivery Method Room Air 07/10/25 11:31 BMI result Body Mass Index 27.1 Const General: no acute distress Nutritional Appearance: well nourished Orientation/consciousness: patient oriented x3 GI Inspection: Yes Abdominal panniculus present Palpation (GI): Soft to palpation, not firm, Tenderness to palpation present (GI) (Generalized abdominal pain) in the epigastrum, no guarding, not rigid, No hepatosplenomegaly present and no hernias Auscultation: normal bowel sounds Rectal Exam - Female: deferred Neuro General: patient oriented x3, gait normal and moves all extremities Psych Speech and movement: Normal speech and movement present Assessment & Plan Assessment & Plan (1) Generalized abdominal pain: Code(s): R10.84 - Generalized abdominal pain Plan: Ordered Reglan Q6hs Avoid greasy and oily foods. Advance Diet slowly Medications: New metoclopramide HCl (Reglan) 5 mg PO Q6H 20 tabs 0RF R10.84 - Generalized abdominal pain famotidine 20 mg PO BEDTIME 20 tabs 0RF R10.84 - Generalized abdominal pain Coding Level of Care Code Est Pt Level 4 (85805) Diagnoses Generalized abdominal pain R10.84 Time Spent (min) 20
[2025-07-10 11:31] VITALS: BP 112/56; PULSE 106; TEMP 37.3; O2SAT 99; BMI 27.1
--- OUTSIDE RECORDS SUMMARY | 2025-07-10 12:13 | XMS_ITS | Clinical Summary ---
Author Organization [employer] Address [address] [facility] [address] [facility] [address] [place] [address] Care Team Providers Care Language Interpreter Name Role Phone Unavailable Primary Care Provider [...] Tobacco Screening 1999 Family Planning (PISQ) 2002 HPV Vaccines (1 - 3-dose series) 2002 DTaP/Tdap/Td Vaccines (1 - Tdap) 2006 Hepatitis B Vaccines (1 of 3 - 19+ 3-dose series) 2006 Pap Smear 2008 Cervical Cancer Screening 2017 HPV/Cotest 2017 COVID-19 Vaccine ( - 2023-2 5 season) 2024 Influenza Vaccine (#1) 2025 Zoster Vaccines (1 of 2) 2037 [...]
--- OUTSIDE RECORDS SUMMARY | 2025-07-10 12:14 | XMS_ITS | Clinical Summary ---
Author Organization [facility] it Address [address] [place] [address] Care Team Providers Care Slag Dumper Name Role Phone Zulay Hathaway MD Primary Care Provider [phone] Surgical History Surgery Date Site/Laterality Comments SECTION [...] 2008 COVID-19 Vaccine (2023-2 5 season) 2024 Depression Screening 11/27/2024 Influenza Vaccine (#1) 2025 HIB Vaccines Aged Out No longer [...] 5 Years) and At-Risk Patients (6 to 49 Years) Aged Out No longer eligible b ased on patient's age to complete this topic RSV Immunization Patients Un moreno 20 months Aged Out No longer eligible b ased on patient's age to complete this topic Varicella Vaccines Aged Out No longer eligible based on patient's age to complete this topic Care Teams Slag Dumper Relationship Specialty Start Date End Date Zulay Hathaway MD [address] [place] [address] PCP - General Internal Medicine 10/31/13
--- OUTSIDE RECORDS SUMMARY | 2025-07-10 12:14 | XMS_ITS | Clinical Summary ---
Author Organization [facility] Address [address] [place] [address] Phone Care Team Providers Care Detention Sergeant Name Role Phone Anjana Whitley MD Primary Care Provid er Allergies Active Allergy Reactions Criticality Noted Date Comments Penicillins Rash Low 03/04/2025 Medications No known medications Active Problems Problem Noted Date Diagnosed Date BRCA gene mutation positive 03/04/2025 Assessment & Plan (03/04/2025 12:06 PM EDT): Patient reports she tested positive for either BRCA 1 or 2 gene mutation 10 years ago, believes diagnosis was made at [facility] She last saw her medical instrument technician 2 years ago, was getting screening ultrasounds, is done with childbearing (had tubal ligation with last delivery) Patient has discussed risk reducing BSO with her prior medical instrument technician but has no plans in place regarding timing Patient states her last mammogram was in either August or September at [facility], she was seeing a breast specialist but they left the practice and she is unsure if she has been assigned a new provider Recommended referrals [place] [facility] [place]ovarian cancer genetics program, AUTOMOTIVE POWER ELECTRONICS ENGINEER oncology at [place], and breast surgery at [facility], orders placed Records from [place] and [facility] requested Stressed the importance of close monitoring for patient as she is at high risk of developing multiple types of cancer due to her hereditary gene mutation, patient expressed understanding of counseling Family History Medical History Relation Comments Stomach cancer Father Breast cancer Other Breast cancer Sister Relation Status Comments Father Other Alive Sister Social History Tobacco Use Types Packs/Day Years Used Date Smoking Tobacco: Never Smokeless Tobacco: Never Tobacco Cessation:Counseling Given: Not Answered Alcohol Use Standard Drinks/Week Comments Not Currently 0 (1 standard drink = 0.6 oz pur e alcohol) Education Answer Date Recorded Are you interested in more education? Not on ruthie e 11/04/2024 Are you concerned about learning? Not on file 11/04/2024 No 11/04/2024 No 11/04/2024 Digital Access Answer Date Recorded No 11/04/2024 No 11/04/2024 Reliable internet access at home? Not on file 11/04/2024 Device with a working camera? Not on file Comments No Sex and Gender Information Value Date Recorded Sex Assigned at Not on file Legal Sex Female 9:11 PM EDT Gender Identity Not on file Sexual Orientation Not on file Last Filed Vital Signs Vital Sign Reading Time Taken Comments Blood Pressure 108/70 03/04/2025 9:33 AM EDT Pulse 72 07/09/2012 4:11 AM EDT Temperature - - Respiratory Rate - - Oxygen Saturation - - Inhaled Oxygen Concentration - - Weight 59.4 kg (131 lb) 03/04/2025 9:33 AM EDT Height 149.9 cm (4' 11 ) 03/04/2025 9:33 AM EDT Body Mass Index 26.46 03/04/2025 9:33 AM EDT Plan of Treatment Health Maintenance Due Date Last Done Comments Adult Td,Tdap Booster 1987 DEPRESSION SCREENING 1999 HEPATITIS C SCREENING 2005 HIV ONE-TIME SCREENING (18-6 5 YEARS) 2005 SCREENING FOR DIABETES 2022 COVID-19 VACCINE (2023-2 5 season) 2024 PAP SMEAR 03/04/2028 03/04/2025 SMOKING STATUS SCREENING (On ce After 26 Yrs) Completed 03/04/2025 HEPATITIS A VACCINES Aged Out No long er eligible based on patient's age to complete this topic HIB VACCINES Aged Out No longer eligi ble based on patient's age to complete this topic MENINGOCOCCAL VACCINES (ACWY) Aged Out No longer eligible based on patient's age to complete this topic MENINGOCOCCAL VACCINES (B) Aged Out N o longer eligible based on patient's age to complete this topic PNEUMOCOCCAL VACCINES (0-49 years) Aged Out No longer eligible based on patient's age to complete this topic Medical Devices Not on file Procedures Procedure Name Priority Date/Time Associated Diagnosis Comments PAP TEST Routine 03/04/2025 12:00 AM EDT from Last 3 Months or Most Recently Relevant to Health Maintenance Results * Pap Test (03/04/2025 12:00 AM EDT) 03/04/2025 03/05/2025 9:4 9 AM EDT Narrative SEE NARRATIVE - 03/07/2025 2:38 PM EDT [address] [address] Sewing Machine Bobbin Winder: Sb Redding MD AUTOMOTIVE POWER ELECTRONICS ENGINEER Cytology Report FINAL DIAGNOSIS A. PAP SMEAR (THIN PREP) CE: SPECIMEN ADEQUACY: Satisfactory for evaluation; transformation zone present. INTERPRETATION: NEGATIVE FOR INTRAEPITHELIAL LESION OR MALIGNANCY. This specimen was analyzed by the automated ThinPrep Imaging System ([employer].) and the selected gomez were reviewed by a sponsorship coordinator. Electronically Signed Out By: JASMYN Apodaca(ASCP) The Pap test is a screening test primarily for squamous cancers and precursors and has associated false-negative and false-positive results. New technologies such as liquid-based preparations may decrease but will not eliminate all false-negative results. Regular sampling and follow-up of unexplained clinical signs and symptoms are recommended to minimize false negative results. PROCEDURES/ADDENDA HPV Testing (Requested) Ordered Date: 03/05/2025 A. PAP SMEAR (THIN PREP) CE: High-risk HPV Panel w/ extended genotyping NEG HPV 16-NEG HPV 18-NEG HPV 45-NEG HPV 33/58-NEG HPV 31-NEG HPV 56/59/66-NEG HPV 51-NEG HPV 52-NEG HPV 35/39/68-NEG Performed by real-time polymerase chain reaction (PCR) at [facility], [address] [place] [address] using the FDA-approved BD Onclarity HPV Assay with extended genotyping. Uses of the assay in scenarios other than those approved by the FDA should be considered off-label use. The accuracy and precision of this test for all other off-label specimen sources has been verified in the Cytopathology Laboratory of the [facility] and has not been cleared or approved by the U.S. Food and Drug Administration. Clinical correlation is advised. The assay assesses the E6/E7 DNA target and utilizes human beta globin as an internal control. Cytology and HPV testing are screening assays and should not be used as the sole means of detecting cancer. False-positives and false-negatives can occur. CLINICAL HISTORY Date of Last Menstrual Period: 02-20-2025 Other Clinical Conditions: Screening Pap SPECIMEN SOURCE A: PAP SMEAR (THIN PREP) CE Patient Name: NUNU REDDING : 1985 (Age: 39) Sex: F Institution: [facility] Location: [facility] Date of Collection: 03/04/2025 Date of Reported: 03/07/2025 14:38 Results to: Katy Gutierrez Katy Jeffrey MD CYTOLOGY ORDER DENITA Final Result SEE NARRATIVE from Last 3 Months or Most Recently Relevant to Health Maintenance Insurance [facility] Member Subscriber Plan / Payer (Ef fective 2023-Present) Name:VahidNunu Relation to Subscriber:Self Name:TerriurielNunu Payer ID:[id number] Group ID:[id number] Type:Medicaid Address: [place] [id number] [facility] [address] [facility] [place] Care Teams Detention Sergeant Relationship Specialty Start Date End Date Anjana Whitley MD [address] [place], [place] PCP - General Internal Medicine 02/04/25 Additional Source Comments The information contained in this document represents components of the legal health record. It is not the complete legal health record.[facility]
== END 2025-07-10 11:57 | disposition home or self-care (01) ==
PROVIDERS: PCP Internal Medicine; Visit Provider Nurse Practitioner Family
DX: R10.84 Generalized abdominal pain (principal)

== ENCOUNTER → 2025-07-10 11:05 | Outpatient (BNVA) | payer OTHER, SELFPAY | PROVIDERS: PCP Internal Medicine; Visit Provider Nurse Practitioner Family | DX: R10.84 Generalized abdominal pain (principal) | CPT/HCPCS: 99212 ==

== ENCOUNTER 2025-07-10 17:57 | Emergency (ER) | payer OTHER, SELFPAY ==
--- NOTE | ~2025-07-10 | CT_ITS ---
CLINICAL HISTORY: diffuse abd pain CT abdomen and pelvis with contrast Comparison: None provided Findings: Small hiatal hernia. Hepatosplenomegaly. No urolithiasis Diffuse small bowel mural thickening with areas of mucosal hyperemia, concerning for enteritis. No bowel obstruction. Bilateral pelvic varices. Prominent inguinal nodes, may be reactive. Multilevel Schmorl's nodes Heterogeneous bilateral ovarian cysts with punctate calcifications and intermediate densities. Hemorrhagic/complex cyst considering. This may be further evaluated with ultrasound. Anteverted uterus with prominent fluid-filled uterine cavity, may be physiologic. Normal appendix. Scattered colonic diverticulosis without diverticulitis or colitis. No acute fracture. IMPRESSION: 1. Possible mildly diffuse enteritis. 2. Bilateral pelvic varices, question pelvic congestion syndrome. 3. Additional findings described, please see above. This document has been electronically signed by: Gabriel Null MD on 07/11/2025 01:04:16
[2025-07-10 18:18] VITALS: BP 116/60; PULSE 117; RESP 16; TEMP 37.8; O2SAT 100; BMI 27.3
--- NOTE | 2025-07-10 18:20 | ED.ABDPAIN ---
HPI - Abdominal Pain General Chief Complaint: Abdominal Pain Stated Complaint: abd pain Time Seen by Provider: 07/10/25 23:21 Source: patient Mode of arrival: ambulatory Limitations: no limitations History of Present Illness ED Provider: Dr. Kate Miner HPI narrative: Patient comes in the emergency room complaining of diffuse abdominal pain for 1 day, no nausea or vomiting. Patient denies any UTI symptoms, denies flank pain. Denies constipation. Patient denies fever or chills. However, when she arrived to triage, she was told that she has an oral temp of 100.0 degrees F Related Data Previous Rx's ?Medication ?Instructions ?Recorded famotidine 20 mg tablet 20 mg PO BEDTIME #20 tabs 07/10/25 metoclopramide HCl 5 mg tablet 5 mg PO Q6H #20 tabs 07/10/25 (Reglan) Allergies Allergy/AdvReac Type Severity Reaction Status Date / Time penicillin V Allergy Mild rash Verified 07/10/25 18:22 Penicillins (PENICILLINS) Allergy Mild RASH Verified 07/10/25 18:22 Review of Systems Review of Systems Constitutional : No Weight loss, No Fever, No Chills, No Night Sweats, complaining of chronic fatigue ENT/Mouth : No Hearing loss, No Ear Pain, No Nasal Congestion, No Sinus Pain, No Hoarseness, No sore throat, No Rhinorrhea, No Swallowing Difficulty Eyes: No Eye Pain, No Swelling, No Redness, No Foreign Body, No Discharge, No Vision Changes Cardiovascular : No Chest Pain, No SOB, No Dyspnea on Exertion, No Orthopnea, No Edema, No Palpitations Respiratory : No Cough, No Sputum, No Wheezing, No Smoke Exposure, No Dyspnea Gastrointestinal : No Nausea, No Vomiting, No Diarrhea, No Constipation, complaining of diffuse abdominal pain, no hematochezia or melena Genitourinary : Complaining of heavy monthly vaginal bleeding lasting for week and half, No Dysuria, No Urinary Frequency, No Hematuria, No Urinary Incontinence, No Urgency, No Flank Pain, No Urinary Flow Changes, No Hesitancy Musculoskeletal : No joint pain, No Myalgias, No Joint Swelling Skin : No Skin Lesions, No rash Neuro : No Weakness, No Numbness, No Paresthesias, No Loss of Consciousness, No Dizziness, No Headache Psych : No Anxiety/Panic, No Depression, No SI/HI/AH/VH, No Social Issues, Heme/Lymph: No Bruising, No Bleeding,No Lymphadenopathy Endocrine : No Polyuria, No Polydipsia, No Temperature Intolerance [facility] Past Medical History Medical History Generalized abdominal pain Overweight (BMI 25.0-29.9) BRCA positive Surgical History H/O tubal ligation delivery delivered Family History Family History Mother No problems noted. Father Stomach cancer Sister Breast cancer Sister Breast cancer Social History Social History Housing: Apartment Alcohol intake: never Patient Tobacco Use Status: Never used Tobacco e-Cigarette/Vaping Use: Never Used Second Hand Smoke Exposure: No Advance Directives: No Advance Directives Information Provided: Yes Do you have a plan to hurt others: No Plan service: No Current occupational status: employed Current occupational exposures/hazards: No Cognitive needs: No Hearing needs: No Vision needs: No Physical Exam ED Exam Exam: Appearance: Alert. Oriented X3. No acute distress. Eyes: Pupils equal, round and reactive to light. ENT: Pharynx normal. Neck: Normal inspection. Neck supple. No lymph nodes noted. No crepitus CVS: Normal heart rate and rhythm. Pulses normal. Normal S1 and S2 Respiratory: No respiratory distress. Breath sounds normal. No Wheezing. No rales Abdomen: Soft , discomfort to palpation in all quadrants, no rebound or guarding Skin: Skin warm and dry. Patient looks diffusely pale Extremities: No lower extremity edema. No Lacerations. No Rash Neuro: Oriented X 3. No motor deficit. No sensory deficit. Moving all extremities. No slurred speech. CN 2 through 12 grossly intact Psych: calm, cooperative, normal affect Vital Signs: Vital Signs - 24 hr 07/10/25 18:18 07/10/25 23:57 Temperature 100.0 F 98.1 F Pulse Rate 117 H 91 Respiratory Rate 16 20 Blood Pressure 116/60 99/55 L Pulse Oximetry 100 100 Oxygen Delivery Method Room Air Room Air BMI result Body Mass Index 27.3 Course Course Course Narrative: This is an RME: Additional HPI, ROS, PE not included below will be deferred to primary provider. RME assessment and note performed by: Sully Vargas PA-C This is a 31-cvio-gcn-female, with no known medical problems, who presents emergency department with concerns of diffuse abdominal pain which started last night. Denies any nausea, vomiting, no urinary symptoms, last bowel movement was today, last menstrual period was on 07/03 No urinary symptoms, no abnormal vaginal discharge. Patient's temperature a 100? F orally, tachycardia at 117bpm. Plan: Labs, UA, further ER evaluation needed. Medical Decision Making Medical Decision Making MDM Narrative: Patient's hematology shows a white blood cell count 16.6, a hemoglobin of 7.1, hematocrit 24, platelets normal, occult blood test negative -I discussed the patient's white blood cell count with the patient, given the abdominal patient is having, it would be best to proceed with a CAT seen, patient agrees with plan. Patient's hemoglobin is 7.1. Patient states that she has never been told that she is anemic. Patient states that she has very heavy menstrual periods lasting week and a half. Denies any rectal bleeding or black stool Patient admits that she has been feeling for several months fatigued, a bit short of breath with exertion but did not pay much attention to it I discussed the risks versus benefits of a blood transfusion, after much debating, patient decided to proceed with a blood transfusion. Of note, just before we obtain labs for the blood transfusion, patient decided not to proceed with a blood transfusion. Overall, patient has changed her mind at least 5 times now. Patient does not seem to be sure, it is best if she takes more time to think about this, not emergent at this time. CT scan of the abdomen shows possible enteritis, also possible pelvic congestion syndrome. I discussed with the patient to follow-up with the OBGYN, as she will eventually need treatment for heavy vaginal bleeding since it is causing anemia. Overall, patient decided to not proceed with a blood transfusion. Patient will follow-up with OBGYN Differential Diagnosis Differential Diagnoses: The differential diagnosis associated with the presentation includes (Enteritis, colitis, ovarian cysts, uterine fibromas) Admission/Observation Consideration of admission/observation: Escalation of care including admission/observation considered (Given patient's hemoglobin levels, observation and blood transfusion was considered, patient declined) Lab Data MDM Lab Attestation statement: I reviewed the patient's lab results. 07/10/25 18:56 07/10/25 18:56 Labs: Lab Results 07/10/25 07/10/25 Range/Units 18:56 23:50 WBC 16.6 H (4.8-10.8) X10*3/uL RBC 3.68 L (4.20-5.50) X10*6/uL Hgb 7.1 L (12.0-16.0) g/dl Hct 24.0 L (37.0-47.0) % MCV 65.2 L (80.0-98.0) fL MCH 19.3 L (27.0-33.0) pg MCHC 29.6 L (31.0-35.0) g/dl RDW 17.9 H (11.0-16.0) % Plt Count 298 (160-400) X10*3/uL MPV 9.8 (9.4-12.3) fL Immature Gran % (Auto) 0.3 (0.0-0.4) % Neut % (Auto) 87.0 H (45-73) % Lymph % (Auto) 7.1 L (20-40) % Independence % (Auto) 5.1 (2-11) % Eos % (Auto) 0.2 (0-4) % Baso % (Auto) 0.3 (0-2) % Lymph # (Auto) 1.2 (1.2-4.9) X10*3/uL Independence # (Auto) 0.9 (0.1-1.2) X10*3/uL Eos # (Auto) 0.0 (0.0-0.4) X10*3/uL Baso # (Auto) 0.1 (0.0-0.2) X10*3/uL Abs Immat Gran (auto) 0.05 H (0.00-0.03) X10*3/uL Absolute Neuts (auto) 14.4 H (2.0-8.3) x10*3/uL Absolute Nucleated RBC 0.000 (0.0-0.012) X10*3/uL Nucleated RBC % (auto) 0.0 (0.0-0.2) /100WBC Sodium 139 (135-145) mmol/L Potassium 3.6 (3.3-5.1) mmol/L Chloride 107 (96-108) mmol/L Carbon Dioxide 24 (22-29) mmol/L Anion Gap 12 (12-20) BUN 9 (9-16) mg/dL Creatinine 0.63 (0.5-1.4) mg/dL Estim Creat Clear Calc 96.4 Estimated GFR > 60 Random Glucose 125 H (60-115) mg/dL Calcium 8.8 (8.4-10.2) mg/dL Magnesium 1.8 (1.6-2.6) mg/dL Total Bilirubin 0.4 (0.0-1.0) mg/dL Direct Bilirubin 0.2 (0.0-0.5) mg/dL AST 15 (5-31) U/L ALT 18 (0-31) U/L Alkaline Phosphatase 48 (39-117) U/L Total Protein 7.3 (6.5-8.0) g/dL Albumin 4.3 (3.5-5.0) g/dL Stool Occult Blood NEGATIVE (NEGATIVE) Influenza Type A (PCR) NEGATIVE (Negative) Influenza Type B (PCR) NEGATIVE (Negative) RSV RNA Qual (PCR) NEGATIVE (Negative) SARS-CoV-2 RNA (RT-PCR) NEGATIVE (Negative) Independent Interpretation I performed an independent interpretation of an: CT Scan Radiology Impression Discussion of test interpretation with radiology: I have reviewed the radiologist's reading. Radiologist Impression: Findings: Small hiatal hernia. Hepatosplenomegaly. No urolithiasis Diffuse small bowel mural thickening with areas of mucosal hyperemia, concerning for enteritis. No bowel obstruction. Bilateral pelvic varices. Prominent inguinal nodes, may be reactive. Multilevel Schmorl's nodes Heterogeneous bilateral ovarian cysts with punctate calcifications and intermediate densities. Hemorrhagic/complex cyst considering. This may be further evaluated with ultrasound. Anteverted uterus with prominent fluid-filled uterine cavity, may be physiologic. Normal appendix. Scattered colonic diverticulosis without diverticulitis or colitis. No acute fracture. IMPRESSION: 1. Possible mildly diffuse enteritis. 2. Bilateral pelvic varices, question pelvic congestion syndrome. 3. Additional findings described, please see above. Medications Administered Discontinued Medications Generic Name Dose Route Start Last Admin Trade Name Freq PRN Reason Stop Dose Admin Acetaminophen 975 mg 07/10/25 18:21 07/10/25 18:24 Acetaminophen 325 Mg Tablet PO 07/10/25 18:22 975 mg ONCE ONE Administration Sodium Chloride 1,000 mls @ 999 mls/hr 07/10/25 23:32 07/11/25 00:02 Ns IVCONT 07/11/25 00:32 999 mls/hr .Q1H1M ONE Administration Iohexol 85 ml 07/11/25 00:15 07/11/25 00:16 Iohexol 350 Mg/Ml 100 Ml Infus..Btl IV 07/11/25 00:16 85 ml ONCE ONE Administration Morphine Sulfate 2 mg 07/10/25 23:32 07/11/25 00:02 Morphine Sulfate 2 Mg/Ml Cartridge IVPUSH 07/10/25 23:33 2 mg ONCE ONE Administration Protocol Ondansetron HCl 4 mg 07/10/25 23:32 07/11/25 00:02 Ondansetron Hcl 4 Mg/2 Ml Vial IVPUSH 07/10/25 23:33 4 mg ONCE ONE Administration Critical Care Time Critical Care Time Critical Care Time: Yes Total Critical Care Time: 50 Attestation: I have personally provided critical care time. Time includes review of lab data, radiology results, discussion with consultants, and monitoring for potential decompensation. Intervention performed as documented. Discharge Plan Discharge Clinical Impression: Enteritis, Anemia Patient Disposition: Home, Self-Care Instructions: Anemia (ED), Enteritis (ED) Additional Instructions: Please follow-up with your primary care physician tomorrow. If you have any worsening or new symptoms, please return to the emergency room or call 911 Prescriptions: No Action metoclopramide HCl [Reglan] 5 mg tablet 5 mg PO Q6H Qty: 20 0RF famotidine 20 mg tablet 20 mg PO BEDTIME Qty: 20 0RF Print Language: Cymro
--- NOTE | 2025-07-10 18:26 | ECG_ITS ---
Test Reason : cp Blood Pressure : */* mmHG Vent. Rate : 103 BPM Atrial Rate : 103 BPM P-R Int : 122 ms QRS Dur : 80 ms QT Int : 300 ms P-R-T Axes : 52 44 -22 degrees QTcB Int : 393 ms Sinus tachycardia T wave abnormality, consider inferior ischemia Abnormal ECG No previous ECGs available Referred By: Sully Vargas Electronically Signed By: Kayden Malone
[2025-07-10 19:01] LABS: MANUAL DIFF FLAG NO
[2025-07-10 19:02] LABS: Hematocrit 24.0 % (37.0-47.0); Hemoglobin 7.1 g/dl (12.0-16.0); Imm Gran Abs Auto 0.05 X10*3/uL (0.00-0.03); Imm Gran Pct Auto 0.3 % (0.0-0.4); Lymphocytes Absolute Auto 1.2 X10*3/uL (1.2-4.9); Mean Corpuscular HGB Conc 29.6 g/dl (31.0-35.0); Mean Corpuscular Hemoglobin 19.3 pg (27.0-33.0); Mean Corpuscular Volume 65.2 fL (80.0-98.0); NRBC Abs Auto 0.000 X10*3/uL (0.0-0.012); NRBC Pct Auto 0.0 /100WBC (0.0-0.2); Platelet Count 298 X10*3/uL (160-400); Red Blood Count 3.68 X10*6/uL (4.20-5.50); White Blood Count 16.6 X10*3/uL (4.8-10.8)
[2025-07-10 19:24] LABS: Alanine Aminotransferase 18 U/L (0-31); Albumin Level 4.3 g/dL (3.5-5.0); Alkaline Phosphatase 48 U/L (39-117); Anion Gap 12 (12-20); Aspartate Amino Transferase 15 U/L (5-31); Blood Urea Nitrogen 9 mg/dL (9-16); Calcium 8.8 mg/dL (8.4-10.2); Carbon Dioxide 24 mmol/L (22-29); Chloride 107 mmol/L (96-108); Creatinine Clr Calc Pharmacy 96.4; Estimated Glomerular Filt Rate > 60; Magnesium 1.8 mg/dL (1.6-2.6); Potassium 3.6 mmol/L (3.3-5.1); Sodium 139 mmol/L (135-145); Total Protein 7.3 g/dL (6.5-8.0)
[2025-07-10 19:41] LABS: Resp Syncy Virus RNA Qual PCR NEGATIVE (Negative); SARS COV2 PCR INHOUSE NEGATIVE (Negative)
--- OUTSIDE RECORDS SUMMARY | 2025-07-10 23:47 | XMS_ITS | Clinical Summary ---
Author Organization [facility] Address [address] [facility] [address] [place] [address] Phone Care Team Providers Care Activities Attendant Name Role Phone Anjana Whitley MD Primary [...] years ago, believes diagnosis was made at [facility] She last saw her software development manager 2 years ago, was getting screening ultrasounds, is done with childbearing (had tubal ligation with last delivery) Patient has discussed risk reducing BSO with her prior software development manager but has no plans in place regarding timing Patient states her last mammogram was in either August or September at [facility], she was seeing a breast specialist but they left the practice and she is unsure if she has been assigned a new provider Recommended referrals to [facility] hereditary breast/ovarian cancer genetics program, VETERINARY PARASITOLOGIST oncology at [place], and breast surgery at [facility], orders placed Records from [place] and [facility] requested Stressed the importance of close monitoring [...] SEE NARRATIVE - 03/07/2025 2:38 PM EDT [address] [address] [address] Reporter: Sb Redding MD VETERINARY PARASITOLOGIST Cytology Report FINAL DIAGNOSIS A. PAP SMEAR (THIN PREP) CE: SPECIMEN ADEQUACY: Satisfactory for evaluation; transformation zone present. INTERPRETATION: NEGATIVE FOR INTRAEPITHELIAL LESION OR MALIGNANCY. This specimen was analyzed by the automated ThinPrep Imaging System ([employer] and the selected gomez were reviewed by a certified ophthalmic surgical assistant. Electronically Signed Out By: JASMYN Apodaca(ASCP) The [...] by real-time polymerase chain reaction (PCR) at [facility], [address] [place] [address] using the FDA-approved BD Onclarity HPV Assay with extended genotyping. Uses of the assay in scenarios other than those approved by the FDA should be considered off-label use. The accuracy and precision of this test for all other off-label specimen sources has been verified in the Cytopathology Laboratory of the [facility] and has not been cleared or [...] : 1985 (Age: 39) Sex: F Institution: [facility] Location: [facility] Date of Collection: 03/04/2025 Date of Reported: 03/07/2025 14:38 Results to: Katy Gutierrez Katy Jeffrey MD CYTOLOGY ORDER DENITA Final Result SEE NARRATIVE from Last 3 Months or Most Recently Relevant to Health Maintenance Insurance [facility] Member Subscriber Plan / Payer (Ef fective 2023-Present) Name:VahidNunu Relation to Subscriber:Self Name:TerriurielNunu Payer ID:[id number] Group ID:[id number] Type:Medicaid Address: [place] [id number] [facility] [address] [facility] Care Teams Activities Attendant Relationship Specialty Start Date End Date Anjana Whitley MD [address] [place], [place] PCP - General Internal Medicine 02/04/25 Additional Source Comments The information contained in this document represents components of the legal health record. It is not the complete legal health record.[facility]
--- OUTSIDE RECORDS SUMMARY | 2025-07-10 23:47 | XMS_ITS | Clinical Summary ---
Author Organization [facility] Address [address] [place] [address] Care Team Providers Care Senior Net C Developer Name Role Phone Zulay Hathaway MD Primary Care Provider [phone] Surgical History Surgery Date Site/Laterality Comments SECTION [...] to complete this topic Care Teams Senior Net C Developer Relationship Specialty Start Date End Date Zulay Hathaway MD [address] [place] [address] PCP - General Internal Medicine 10/31/13
[2025-07-10 23:57] VITALS: BP 99/55; PULSE 91; RESP 20; TEMP 36.7; O2SAT 100
[2025-07-11 00:11] LABS: OBS Int Ctl Valid YES; OBS1 NEGATIVE (NEGATIVE)
[2025-07-11] MEDS: iohexoL 350 MG/ML 100 ML INFUS..BTL 85 ML IV (00:16)
[2025-07-11 01:19] VITALS: BP 96/57; PULSE 100; RESP 16; TEMP 36.6; O2SAT 97
== END 2025-07-11 01:19 | disposition home or self-care (01) ==
PROVIDERS: Physician Assistant Medical; Emergency Provider Emergency Medicine; PCP Internal Medicine
DX: K52.9 Noninfective gastroenteritis and colitis, unspecified (principal); D64.9 Anemia, unspecified; R10.9 Unspecified abdominal pain; K44.9 Diaphragmatic hernia without obstruction or gangrene; R16.2 Hepatomegaly with splenomegaly, not elsewhere classified
CPT/HCPCS: 74177; 80048; 80076; 82272; 83735; 85025; 87637; 93005; 96361; 96374; 96375; 99284; J2270; J2405; Q9967

== ENCOUNTER → 2025-07-10 18:26 | Outpatient (BNV) | payer OTHER, SELFPAY | PROVIDERS: Emergency Provider Emergency Medicine; PCP Internal Medicine; Visit Provider Internal Medicine Cardiovascular Disease | DX: R00.0 Tachycardia, unspecified (principal) | CPT/HCPCS: 93010 ==

== ENCOUNTER → 2025-07-11 | Outpatient (BNV) | payer OTHER, SELFPAY | PROVIDERS: Emergency Provider Emergency Medicine; PCP Internal Medicine; Visit Provider Radiology Diagnostic Radiology | DX: R10.84 Generalized abdominal pain (principal) | CPT/HCPCS: 74177 ==

== ENCOUNTER 2025-07-14 15:19 | Emergency (ER) | payer OTHER, SELFPAY ==
[2025-07-14 15:32] VITALS: BP 137/67; PULSE 101; RESP 18; TEMP 37.3; O2SAT 98; BMI 22.1
--- NOTE | 2025-07-14 15:34 | ED.ABDPAIN ---
HPI - Abdominal Pain General Chief Complaint: Abdominal Pain Stated Complaint: abd & lower back pain Related Data Previous Rx's ?Medication ?Instructions ?Recorded famotidine 20 mg tablet 20 mg PO BEDTIME #20 tabs 07/10/25 metoclopramide HCl 5 mg tablet 5 mg PO Q6H #20 tabs 07/10/25 (Reglan) Allergies Allergy/AdvReac Type Severity Reaction Status Date / Time penicillin V Allergy Mild rash Verified 07/14/25 15:36 Penicillins (PENICILLINS) Allergy Mild RASH Verified 07/14/25 15:36 [facility] Past Medical History Medical History Generalized abdominal pain Overweight (BMI 25.0-29.9) BRCA positive Surgical History H/O tubal ligation delivery delivered Family History Family History Mother No problems noted. Father Stomach cancer Sister Breast cancer Sister Breast cancer Social History Social History Housing: Apartment Alcohol intake: never Patient Tobacco Use Status: Never used Tobacco e-Cigarette/Vaping Use: Never Used Second Hand Smoke Exposure: No Advance Directives: No Advance Directives Information Provided: No service: No Current occupational status: employed Current occupational exposures/hazards: No Cognitive needs: No Hearing needs: No Vision needs: No Physical Exam ED Vital Signs: BMI result Body Mass Index 22.1 Course Course Course Narrative: This is a Rapid Medical Examination (RME) performed by Polina Fountain PA-C in triage. Full HPI, ROS, assessment and treatment plan per primary provider in the Main ED. Hx: 40 yo F here for eval of lower abdominal pain x5 days. seen here 4 days ago for same - diagnosed with ?enteritis and ?pelvic congestion syndrome. advised to f/u outpatient. also found to be anemic - declined blood transfusion at that time. now having continued abd pain. taking tylenol without improvement Plan: labs, ua Reevaluation(s) Reevaluation #1: Patient left the emergency department before myself or any of the other clinicians could review or explain physical exam findings, test results, need or lack there of for additional testing, treatment options, or a treatment plan. Medical Decision Making Lab Data 07/14/25 15:47 07/14/25 15:47 Labs: Lab Results 07/14/25 07/14/25 Range/Units 15:47 16:03 WBC 6.2 (4.8-10.8) X10*3/uL RBC 4.08 L (4.20-5.50) X10*6/uL Hgb 7.6 L (12.0-16.0) g/dl Hct 26.9 L (37.0-47.0) % MCV 65.9 L (80.0-98.0) fL MCH 18.6 L (27.0-33.0) pg MCHC 28.3 L (31.0-35.0) g/dl RDW 17.7 H (11.0-16.0) % Plt Count 303 (160-400) X10*3/uL MPV 9.0 L (9.4-12.3) fL Immature Gran % (Auto) 0.3 (0.0-0.4) % Neut % (Auto) 66.5 (45-73) % Lymph % (Auto) 24.2 (20-40) % [place] % (Auto) 5.3 (2-11) % Eos % (Auto) 2.7 (0-4) % Baso % (Auto) 1.0 (0-2) % Lymph # (Auto) 1.5 (1.2-4.9) X10*3/uL [place] # (Auto) 0.3 (0.1-1.2) X10*3/uL Eos # (Auto) 0.2 (0.0-0.4) X10*3/uL Baso # (Auto) 0.1 (0.0-0.2) X10*3/uL Abs Immat Gran (auto) 0.02 (0.00-0.03) X10*3/uL Absolute Neuts (auto) 4.1 (2.0-8.3) x10*3/uL Absolute Nucleated RBC 0.000 (0.0-0.012) X10*3/uL Nucleated RBC % (auto) 0.0 (0.0-0.2) /100WBC Sodium 142 (135-145) mmol/L Potassium 3.9 (3.3-5.1) mmol/L Chloride 109 H (96-108) mmol/L Carbon Dioxide 24 (22-29) mmol/L Anion Gap 13 (12-20) BUN 7 L (9-16) mg/dL Creatinine 0.64 (0.5-1.4) mg/dL Estim Creat Clear Calc 102.9 Estimated GFR > 60 Random Glucose 109 (60-115) mg/dL Calcium 9.2 (8.4-10.2) mg/dL Magnesium 2.1 (1.6-2.6) mg/dL Total Bilirubin 0.2 (0.0-1.0) mg/dL AST 27 (5-31) U/L ALT 39 H (0-31) U/L Alkaline Phosphatase 66 (39-117) U/L Total Protein 7.9 (6.5-8.0) g/dL Albumin 4.5 (3.5-5.0) g/dL Lipase 16 (8-78) U/L Beta HCG, Quant < 2 mIU/mL Urine Color Yellow Urine Appearance Clear Urine pH 6.5 (5.0-9.0) Ur Specific [place] <= 1.005 (1.005-1.025) Urine Protein Negative (Neg-Trace) mg/dL Urine Glucose (UA) Negative (Negative) mg/dL Urine Ketones Negative (Negative) mg/dL Urine Blood Negative (Negative) Urine Nitrite Negative (Negative) Ur Leukocyte Esterase Trace H (Negative) Urine RBC 0-2 (0-2) /HPF Urine WBC 0-5 (0-5) /HPF Ur Squamous Epith Cells 0-2 (0-2) /HPF Urine Bacteria None Seen (None Seen) Hyaline Casts 0-2 (0-2) /LPF Discharge Plan Discharge Clinical Impression: Abdominal pain Patient Disposition: Left W/O Completing Treatment Prescriptions: No Action metoclopramide HCl [Reglan] 5 mg tablet 5 mg PO Q6H Qty: 20 0RF famotidine 20 mg tablet 20 mg PO BEDTIME Qty: 20 0RF Discharge Date/Time: 07/14/25 22:12
[2025-07-14 15:52] LABS: MANUAL DIFF FLAG NO
[2025-07-14 15:55] LABS: Hematocrit 26.9 % (37.0-47.0); Hemoglobin 7.6 g/dl (12.0-16.0); Imm Gran Abs Auto 0.02 X10*3/uL (0.00-0.03); Imm Gran Pct Auto 0.3 % (0.0-0.4); Lymphocytes Absolute Auto 1.5 X10*3/uL (1.2-4.9); Mean Corpuscular HGB Conc 28.3 g/dl (31.0-35.0); Mean Corpuscular Hemoglobin 18.6 pg (27.0-33.0); Mean Corpuscular Volume 65.9 fL (80.0-98.0); NRBC Abs Auto 0.000 X10*3/uL (0.0-0.012); NRBC Pct Auto 0.0 /100WBC (0.0-0.2); Platelet Count 303 X10*3/uL (160-400); Red Blood Count 4.08 X10*6/uL (4.20-5.50); White Blood Count 6.2 X10*3/uL (4.8-10.8)
[2025-07-14 16:10] LABS: Alanine Aminotransferase 39 U/L (0-31); Albumin Level 4.5 g/dL (3.5-5.0); Alkaline Phosphatase 66 U/L (39-117); Anion Gap 13 (12-20); Aspartate Amino Transferase 27 U/L (5-31); Blood Urea Nitrogen 7 mg/dL (9-16); Calcium 9.2 mg/dL (8.4-10.2); Carbon Dioxide 24 mmol/L (22-29); Chloride 109 mmol/L (96-108); Creatinine Clr Calc Pharmacy 102.9; Estimated Glomerular Filt Rate > 60; Lipase 16 U/L (8-78); Magnesium 2.1 mg/dL (1.6-2.6); Potassium 3.9 mmol/L (3.3-5.1); Sodium 142 mmol/L (135-145); Total Protein 7.9 g/dL (6.5-8.0)
[2025-07-14 16:12] LABS: Appearance Urine Clear; Glucose Urine UA Negative (Negative); PH 6.5 (5.0-9.0); Specific Gravity - Urine <= 1.005 (1.005-1.025); UMIC TRIGGER UACC YES
--- OUTSIDE RECORDS SUMMARY | 2025-07-14 19:04 | XMS_ITS | Clinical Summary ---
Author Organization [employer] [facility] it Address [address] [place] [address] Care Team Providers Care Paper Pattern Folder Name Role Phone Zulay Hathaway MD Primary Care Provider [phone] Surgical History Surgery Date Site/Laterality Comments SECTION [...] age to complete this topic Care Teams Paper Pattern Folder Relationship Specialty Start Date End Date Zulay Hathaway MD [address] [place] [address] PCP - General Internal Medicine 10/31/13
--- OUTSIDE RECORDS SUMMARY | 2025-07-14 19:04 | XMS_ITS | Clinical Summary ---
Author Organization [facility] Address [address] [facility] [address] [place] [address] Phone Care Team Providers Care Mailroom Supervisor Name Role Phone Anjana Whitley MD Primary [...] years ago, believes diagnosis was made at [facility] She last saw her entry level software engineer 2 years ago, was getting screening ultrasounds, is done with childbearing (had tubal ligation with last delivery) Patient has discussed risk reducing BSO with her prior entry level software engineer but has no plans in place regarding timing Patient states her last mammogram was in either August or September at [facility], she was seeing a breast specialist but they left the practice and she is unsure if she has been assigned a new provider Recommended referrals to [facility] hereditary breast/ovarian cancer genetics program, SUPPORT SERVICES REP oncology at [place], and breast surgery at [facility], orders placed Records from [place] and [facility] requested Stressed the importance of close [...] SEE NARRATIVE - 03/07/2025 2:38 PM EDT [address] [address] Sand Control Worker: Sb Redding MD SUPPORT SERVICES REP Cytology Report FINAL DIAGNOSIS A. PAP SMEAR (THIN PREP) CE: SPECIMEN ADEQUACY: Satisfactory for evaluation; transformation zone present. INTERPRETATION: NEGATIVE FOR INTRAEPITHELIAL LESION OR MALIGNANCY. This specimen was analyzed by the automated ThinPrep Imaging System (Intapp.) and the selected gomez were reviewed by a manager program management. Electronically Signed Out By: JASMYN Apodaca(ASCP) The [...] by real-time polymerase chain reaction (PCR) at [facility], [address] [place] [address] using the FDA-approved BD Onclarity HPV Assay with extended genotyping. Uses of the assay in scenarios other than those approved by the FDA should be considered off-label use. The accuracy and precision of this test for all other off-label specimen sources has been verified in the Cytopathology Laboratory of the [facility] and has not been cleared or [...] : 1985 (Age: 39) Sex: F Institution: [facility] Location: [facility] Date of Collection: 03/04/2025 Date of Reported: 03/07/2025 14:38 Results to: Katy Gutierrez Katy Jeffrey MD CYTOLOGY ORDER DENITA Final Result SEE NARRATIVE from Last 3 Months or Most Recently Relevant to Health Maintenance [place] [address] [employer] Member Subscriber Plan / Payer (Ef fective 2023-Present) Name:VahidNunu Relation to Subscriber:Self Name:TerriurielNunu Payer ID:[id number] Group ID:[id number] Type:Medicaid Address: [place] [id number] [employer] [address] [facility] Care Teams Mailroom Supervisor Relationship Specialty Start Date End Date Anjana Whitley MD [address] [place], [place] PCP - General Internal Medicine 02/04/25 Additional Source Comments The information contained in this document represents components of the legal health record. It is not the complete legal health record.[facility]
== END 2025-07-14 22:12 | disposition left against medical advice (07) ==
PROVIDERS: Physician Assistant Medical; Emergency Provider Emergency Medicine
DX: R10.9 Unspecified abdominal pain (principal); Z53.21 Procedure and treatment not carried out due to patient leaving prior to being seen by health care provider
CPT/HCPCS: 36415; 80053; 81001; 83690; 83735; 84702; 85025; 99282; 99283

== ENCOUNTER 2025-07-25 15:58 | Outpatient (AMB) | payer OTHER, SELFPAY ==
--- OUTSIDE RECORDS SUMMARY | 2025-07-25 16:01 | XMS_ITS | Clinical Summary ---
Author Organization [employer] [facility] it Address [address] [place] [address] Care Team Providers Care Wedding Photographer Name Role Phone Zulay Hathaway MD Primary Care Provider [phone] Surgical History Surgery Date Site/Laterality Comments SECTION [...] age to complete this topic Care Teams Wedding Photographer Relationship Specialty Start Date End Date Zulay Hathaway MD [address] [place] [address] PCP - General Internal Medicine 10/31/13
--- OUTSIDE RECORDS SUMMARY | 2025-07-25 16:01 | XMS_ITS | Clinical Summary ---
Author Organization [facility] Address [address] [facility] [address] [place] [address] Phone Care Team Providers Care Health Nurse Name Role Phone Anjana Whitley MD Primary [...] believes diagnosis was made at [facility] She last saw her fuller brush man 2 years ago, was getting screening ultrasounds, is done with childbearing (had tubal ligation with last delivery) Patient has discussed risk reducing BSO with her prior fuller brush man but has no plans in place regarding timing Patient states her last mammogram was in either August or September at [facility], she was seeing a breast specialist but they left the practice and she is unsure if she has been assigned a new provider Recommended referrals to [facility] hereditary breast/ovarian cancer genetics program, MANAGER LVN oncology at [place], and breast surgery at [facility], orders placed Records from [place] and [facility] requested Stressed the importance of close [...] SEE NARRATIVE - 03/07/2025 2:38 PM EDT [address] [address] Mine Safety Manager: Sb Redding MD MANAGER LVN Cytology Report FINAL DIAGNOSIS A. PAP SMEAR (THIN PREP) CE: SPECIMEN ADEQUACY: Satisfactory for evaluation; transformation zone present. INTERPRETATION: NEGATIVE FOR INTRAEPITHELIAL LESION OR MALIGNANCY. This specimen was analyzed by the automated ThinPrep Imaging System (Kidblog.) and the selected gomez were reviewed by a ladle watcher. Electronically Signed Out By: JASMYN Apodaca(ASCP) The [...] by real-time polymerase chain reaction (PCR) at [facility], [address] [place] [address] using the FDA-approved BD Onclarity HPV Assay with extended genotyping. Uses of the assay in scenarios other than those approved by the FDA should be considered off-label use. The accuracy and precision of this test for all other off-label specimen sources has been verified in the Cytopathology Laboratory of the [facility] and has not been cleared or approved [...] : 1985 (Age: 39) Sex: F Institution: [facility] Location: [facility] Date of Collection: 03/04/2025 Date of Reported: 03/07/2025 14:38 Results to: Katy Gutierrez Katy Jeffrey MD CYTOLOGY ORDER DENITA Final Result SEE NARRATIVE from Last 3 Months or Most Recently Relevant to Health Maintenance Insurance [employer] Member Subscriber Plan / Payer (Ef fective 2023-Present) Name:VahidNunu Relation to Subscriber:Self Name:TerriurielNunu Payer ID:[id number] Group ID:[id number] Type:Medicaid Address: [place] [id number] [employer] [address] [facility] Care Teams Health Nurse Relationship Specialty Start Date End Date Anjana Whitley MD [address] [place], [place] PCP - General Internal Medicine 02/04/25 Additional Source Comments The information contained in this document represents components of the legal health record. It is not the complete legal health record.[facility]
--- OUTSIDE RECORDS SUMMARY | 2025-07-25 16:01 | XMS_ITS | Clinical Summary ---
Author Organization [employer] Address [address] [place] [address] Care Team Providers Care Cray Fishing Hand Name Role Phone Unavailable Primary Care Provider [...]
--- OUTSIDE RECORDS SUMMARY | 2025-07-25 16:01 | XMS_ITS | Encounter Summary ---
Author Organization [employer] [facility] Address [address] [facility] [address] [place] [address] Care Team Providers Care Paramedic Supervisor Name Role Phone Unavailable Primary Care Provider Unavailabl e Encounter Details Date Type Department Care Team (Latest Contact Info) Description 06/17/2019 Abstract C CONVERSIONS Dental, Provider, DDS Social History Tobacco Use Types Packs/Day Years Used Date Smoking Tobacco: Never Assessed Comments Unknown Sex and Gender Information Value Date Recorded Sex Assigned at Female 09/26/2022 10:19 AM EDT Legal Sex Female 10:19 AM EDT Gender Identity Not on file Sexual Orientation Not on file documented as of this encounter Plan of Treatment Not on file documented as of this encounter Visit Diagnoses Not on filedocumented in this encounter
[2025-07-25 16:04] VITALS: BP 110/70; PULSE 73; RESP 18; TEMP 36.3; O2SAT 98; BMI 22.7
--- NOTE | 2025-07-25 16:04 | A.OFFPC_ITS ---
Vital Signs 07/25/25 16:04 Height 5 ft 4 in Weight 132 lb 6 oz BMI 22.7 BP 110/70 Blood Pressure Location Lt brachial Position Sitting Respiration 18 Pulse 73 Pulse Source Pulse Oximeter Temp 97.3 F Temp Source Temporal Artery Scan Pulse Oximetry (%) 98 Oxygen Delivery Method Room Air Intake Visit Reasons[place] [facility] [place] ABD pain Census Enumerator Required: Yes Census Enumerator Language: Kiswahili Accompanied by: Self / Same As Patient Allergies penicillin V Allergy (Mild, Verified 07/25/25 16:05) rash Penicillins (PENICILLINS) Allergy (Mild, Verified 07/25/25 16:05) RASH Tobacco use date assessed: 07/25/25 Dental Screening Dental Screen Date: 07/25/25 Did you have a dental visit in the last 12 months?: Yes Did you have a dental problem in the last 6 months where you did not have access to dental care?: No Was dental information given to patient?: Patient has dentist HPI HPI Comments History of Present Illness Details 40 y/o Female patient who [facility] for EDF. Pt was admitted at [facility]14 for an evaluation of Abdominal Pain. Pt left the [facility] without being seen. Pt had CT scan before she left which showed Mildly Diffuse Enteritis, Hemorrhagic Complex Cyst and Ovarian Cysts. Pt has h/o AUB and needs to f/u with [employer]. She recently went to [facility] ED few days for similar concern - she was found to have Low Hgb - she was transfused with Iron infusion ?RBC. Pt reports currently having Heavy Bleeding for 7 days. Pt had B/L Tubal ligation. [facility] Medical History (Updated 07/25/25 @ 16:45 by Soledad Reid NP) Abnormal uterine bleeding (AUB) Generalized abdominal pain Overweight (BMI 25.0-29.9) BRCA positive Surgical History H/O tubal ligation delivery delivered Family History Mother No problems noted. Father Stomach cancer Sister Breast cancer Sister Breast cancer Social History Housing: Apartment Alcohol intake: never Patient Tobacco Use Status: Never used Tobacco e-Cigarette/Vaping Use: Never Used Second Hand Smoke Exposure: No service: No Current occupational status: employed Current occupational exposures/hazards: No Cognitive needs: No Hearing needs: No Vision needs: No Questionnaire PHQ-9 Over the last 2 weeks, how often have you been bothered by any of the following problems? 1. Little interest or pleasure in doing things: not at all 2. Feeling down, depressed, or hopeless: several days 3. Trouble falling or staying asleep, or sleeping too much: several days 4. Feeling tired or having little energy: not at all 5. Poor appetite or overeating: not at all 6. Feeling bad about yourself - or that you are a failure or have let yourself or your family down: several days 7. Trouble concentrating on things, such as reading the newspaper or watching television: several days 8. Moving or speaking so slowly that other people could have noticed. Or the opposite - being so fidgety or restless that you have been moving around a lot more than usual: not at all 9. Thoughts that you would be better off or of hurting yourself in some way: not at all Total score: 4 Depression Screening Interpretation: Positive Depression Screening Follow-up: Existing condition, Community Mental Health Worker F/U and Follow-up Visit Requested Depression Screening Done: Yes 48140 - PHQ-9 Billing: Yes Source: Developed by Drs. Juventino Negron, Layla Cook, Michel Mane and colleagues, with an educational aaron from [employer]. Thrive Questionnaire Date Thrive assessed: 07/25/25 I am a: Patient What is your living situation today?: I have a steady place to live Within the past 12 months, did the food you bought not last and you didn't have the money to get more?: Never true Within the past 12 months, did you worry whether your food would run out before you got money to buy more?: Never true Do you have trouble paying for medicines?: No Do you have trouble getting transportation to medical appointments?: No Do you have trouble paying your heating and electricity bill?: No Do you have trouble taking care of your child, family member or friend?: No Do you have trouble with day-to-day activities such as bathing, preparing meals, shopping, managing finances, etc.?: No Are you currently unemployed and looking for a job?: Yes Are you interested in more education?: Yes Please select the resources that you would like help with: None Currently or been in a relationship where the following occur: I choose not to answer THRIVE Score: 0 AUDIT C Alcohol Use Questionnaire (AUDIT-C) 1. How often do you have a drink containing alcohol?: Never Total Score: 0 Score Reviewed/Action Taken: No BOLIVAR-7 AMB Questionnaire BOLIVAR-7 Date BOLIVAR - 7 assessed: 07/25/25 Feeling nervous, anxious, or on edge: 0 = Not at all Not being able to stop or control worryin = Not at all Worrying too much about different things: 3 = Nearly every day Trouble relaxin = Several days Being so restless that it is hard to sit still: 0 = Not at all Becoming easily annoyed or irritable: 0 = Not at all Feeling afraid as if something awful might happen: 0 = Not at all Total BOLIVAR-7 score (0-4 normal; 5-9 mild; 10-14 moderate; 15-21 severe): 4 Source: Developed by Drs. Juventino Negron, Layla Cook, Michel Mane and colleagues, with an educational aaron from [employer]. BOLIVAR-7 Assessment Billing BOLIVAR-7 Assessment Tool: BOLIVAR-7 Assessment 77284 Review of Systems Const All systems reviewed & are unremarkable except as noted in HPI and below Physical exam (Primary Care) Vital Signs: Last Vital Signs Temp 97.3 F 07/25/25 16:04 Pulse 73 07/25/25 16:04 Resp 18 07/25/25 16:04 BP 110/70 07/25/25 16:04 Pulse Ox 98 07/25/25 16:04 Oxygen Delivery Method Room Air 07/25/25 16:04 BMI result Body Mass Index 22.7 Tobacco/Smoking Status: Tobacco use Status Tobacco use date assessed 07/25/25 07/25/25 16:11 Patient Tobacco Use Status Never used Tobacco 07/25/25 16:11 e-Cigarette/Vaping Use Never Used 07/25/25 16:11 PHQ-9: PHQ-9 Score PHQ-9: Total score 4 07/25/25 16:45 Depression Screening Interpretation: Positive Depression Screening Follow-up: Existing condition, Community Mental Health Worker F/U and Follow-up Visit Requested Thrive Assessment: Date of Thrive Assessment Date Thrive assessed 07/25/25 07/25/25 16:11 Currently or been in a relationship where the following occur: I choose not to answer Const General: no acute distress Nutritional Appearance: overweight Orientation/consciousness: patient oriented x3 Resp Effort & Inspection: normal respiratory effort Auscultation: clear to auscultation bilaterally Cardio Heart sounds: S1 normal heart sound present and S2 normal heart sound present GI Inspection: Yes normal to inspection Palpation (GI): Soft to palpation, not firm, Tenderness to palpation present (GI) suprapubicly, no guarding, not rigid and No hepatosplenomegaly present Auscultation: normal bowel sounds Neuro General: patient oriented x3 Coding Level of Care Code Est Pt Level 4 (48795) Diagnoses Generalized abdominal pain R10.84 Abnormal uterine bleeding (AUB) N93.9 Additional Codes BOLIVAR-7 Assessment Billing - BOLIVAR-7 Assessment Tool: BOLIVAR-7 Assessment 32249 ([id number]) PHQ-9 - 97962 - PHQ-9 Billing: Yes ([id number]) Time Spent (min) 20 Assessment & Plan Assessment & Plan (1) Generalized abdominal pain: Code(s): R10.84 - Generalized abdominal pain Category: Medical Plan: Pain has subsided for now. Probably this is related to her Pelvis vs Abdomen. She will need to f/u with cloth examiner machine for Pelvic U/S (2) Abnormal uterine bleeding (AUB): Code(s): N93.9 - Abnormal uterine and vaginal bleeding, unspecified Category: Medical Plan: Advised to take Ibuprofen 800 mg for pain Started her on Sherrill to help with bleeding. Medications: New norethindrone (contraceptive) (Sherrill) 0.35 mg PO DAILY 84 tabs 0RF N93.9 - Abnormal uterine and vaginal bleeding, unspecified
== END 2025-07-25 16:37 | disposition home or self-care (01) ==
LOC: HO.HMCH 15:59
PROVIDERS: PCP Internal Medicine; Visit Provider Nurse Practitioner Family
DX: R10.84 Generalized abdominal pain (principal); N93.9 Abnormal uterine and vaginal bleeding, unspecified

== ENCOUNTER → 2025-07-25 15:58 | Outpatient (BNVA) | payer OTHER, SELFPAY | PROVIDERS: PCP Internal Medicine; Visit Provider Nurse Practitioner Family | DX: R10.84 Generalized abdominal pain (principal); N93.9 Abnormal uterine and vaginal bleeding, unspecified | CPT/HCPCS: 96127; 99212 ==

== ENCOUNTER 2025-08-04 12:47 | Outpatient (AMB) | payer OTHER, SELFPAY ==
--- NOTE | 2025-08-04 12:51 | MHC.PC.OV ---
Vital Signs 08/04/25 12:53 Height 5 ft 4 in Weight 131 lb 4 oz BMI 22.5 BP 134/66 Blood Pressure Location Lt brachial Position Sitting Pulse 70 Pulse Source Pulse Oximeter Temp 97.3 F Temp Source Temporal Artery Scan Pulse Oximetry (%) 99 Oxygen Delivery Method Room Air Intake Visit Reasons: follow up Cinder Block Mason Required: No Maintenance Worker Swimming Pool: Not Required per policy Accompanied by: Self / Same As Patient Allergies penicillin V Allergy (Mild, Verified 08/04/25 13:09) rash Penicillins (PENICILLINS) Allergy (Mild, Verified 08/04/25 13:09) RASH Medication List - Last Reconciled 08/04/25 by Anjana Franco MD norethindrone (contraceptive) (Sherrill) 0.35 mg PO DAILY Tobacco use date assessed: 08/04/25 Dental Screening Dental Screen Date: 07/25/25 HPI HPI Comments History of Present Illness Details The patient is a 40-year-old female presenting with heavy menstrual bleeding and low hemoglobin levels. The patient reports heavy menstrual bleeding, managed with the contraceptive pill Sherrill, and has a penicillin allergy. Low hemoglobin levels have been noted, likely due to heavy menstrual bleeding, and she is advised to take iron and vitamin C supplements. Celiac disease is being considered as a potential cause for her low hemoglobin, with blood tests recommended. The patient also has cataracts, confirmed during the visit. [facility] Medical History (Updated 08/04/25 @ 13:18 by Anjana Franco MD) Abnormal uterine bleeding (AUB) Generalized abdominal pain Overweight (BMI 25.0-29.9) BRCA positive Surgical History H/O tubal ligation delivery delivered Family History Mother No problems noted. Father Stomach cancer Sister Breast cancer Sister Breast cancer Social History Housing: Apartment Alcohol intake: never Patient Tobacco Use Status: Never used Tobacco e-Cigarette/Vaping Use: Never Used Second Hand Smoke Exposure: No service: No Current occupational status: employed Current occupational exposures/hazards: No Cognitive needs: No Hearing needs: No Vision needs: No Questionnaire Thrive Questionnaire Date Thrive assessed: 04/23/25 I am a: Patient What is your living situation today?: I have a steady place to live Within the past 12 months, did the food you bought not last and you didn't have the money to get more?: Never true Within the past 12 months, did you worry whether your food would run out before you got money to buy more?: Never true Do you have trouble paying for medicines?: No Do you have trouble getting transportation to medical appointments?: No Do you have trouble paying your heating and electricity bill?: No Do you have trouble taking care of your child, family member or friend?: No Do you have trouble with day-to-day activities such as bathing, preparing meals, shopping, managing finances, etc.?: No Are you currently unemployed and looking for a job?: Yes Are you interested in more education?: Yes Please select the resources that you would like help with: None Currently or been in a relationship where the following occur: I choose not to answer THRIVE Score: 0 BOLIVAR-7 AMB Questionnaire BOLIVAR-7 Date BOLIVAR - 7 assessed: 07/25/25 Source: Developed by Drs. Juventino Negron, Layla Cook, Michel Mane and colleagues, with an educational aaron from [employer]. Review of Systems Const All systems reviewed & are unremarkable except as noted in HPI and below Card Denies chest pain at rest, Denies chest pain with activity, Denies edema, Denies irregular heart rhythm, Denies claudication, Denies dyspnea, Denies dyspnea on exertion, Denies orthopnea, Denies paroxysmal nocturnal dyspnea and Denies slow heart rate Resp Denies cough, Denies dyspnea and Denies dyspnea on exertion GI Denies abdominal pain, Denies change in bowel habits, Denies excessive flatus, Denies nausea and Denies vomiting Neuro Denies lack of coordination Physical exam (Primary Care) Vital Signs: Last Vital Signs Temp 97.3 F 08/04/25 12:53 Pulse 70 08/04/25 12:53 BP 134/66 08/04/25 12:53 Pulse Ox 99 08/04/25 12:53 Oxygen Delivery Method Room Air 08/04/25 12:53 BMI result Body Mass Index 22.5 Tobacco/Smoking Status: Tobacco use Status Tobacco use date assessed 08/04/25 08/04/25 12:57 Patient Tobacco Use Status Never used Tobacco 08/04/25 12:52 e-Cigarette/Vaping Use Never Used 08/04/25 12:52 Thrive Assessment: Date of Thrive Assessment Date Thrive assessed 04/23/25 08/04/25 12:52 Currently or been in a relationship where the following occur: I choose not to answer Resp Effort & Inspection: normal respiratory effort Auscultation: clear to auscultation bilaterally Cardio Jugular venous distension: no JVD Rate: regular rate Rhythm: regular rhythm Heart sounds: S1 normal heart sound present and S2 normal heart sound present Extrem General: Yes full ROM Coding Level of Care Code Est Pt Level 3 (69822) Complex EM visit Add On G2211 Diagnoses Abnormal uterine bleeding (AUB) N93.9 Iron deficiency anemia D50.9 Time Spent (min) 19 Assessment & Plan Assessment & Plan (1) Abnormal uterine bleeding (AUB): Code(s): N93.9 - Abnormal uterine and vaginal bleeding, unspecified Category: Medical (2) Iron deficiency anemia: Code(s): D50.9 - Iron deficiency anemia, unspecified Category: Medical Plan Plan Patient was informed and verbally consented to the use of an ambient scribe for clinic note documentation during this visit. 1. Excessive and frequent menstruation with regular cycle N92.0 The patient is experiencing heavy menstrual bleeding, managed with the contraceptive pill Sherrill. Iron and vitamin C supplements have been recommended to address associated low hemoglobin levels. 2. Anemia, unspecified D64.9 The low hemoglobin levels are likely due to heavy menstrual bleeding. Iron and vitamin C supplementation has been advised. Orders: Orders Complete Blood Count Auto Diff Today D64.9 - Anemia, unspecified Vitamin B12 and Folate Today E53.8 - Deficiency of other specified B group vitamins Celiac Disease Panel Today D50.9 - Iron deficiency anemia, unspecified IRON PROFILE Today D64.9 - Anemia, unspecified Referrals [employer]ER Referral N83.209 - Unspecified ovarian cyst, unspecified side, N92.1 - Excessive and frequent menstruation with irregular cycle, Z15.01 - Genetic susceptibility to malignant neoplasm of breast, Z15.09 - Genetic susceptibility to other malignant neoplasm Medications: New ferrous sulfate 325 mg PO DAILY 90 tabs 2RF 90 days ascorbic acid (vitamin C) 500 mg PO DAILY 90 caps 1RF 90 days
[2025-08-04 12:53] VITALS: BP 134/66; PULSE 70; TEMP 36.3; O2SAT 99; BMI 22.5
--- OUTSIDE RECORDS SUMMARY | 2025-08-04 14:56 | XMS_ITS | Encounter Summary ---
Author Organization [employer] [facility] Address [address] [place] [address] Care Team Providers Care Manager Operations Research Name Role Phone Unavailable Primary Care Provider [...]
--- OUTSIDE RECORDS SUMMARY | 2025-08-04 14:56 | XMS_ITS | Clinical Summary ---
Author Organization [employer] Address [address] [place] [address] Care Team Providers Care Lan Manager Name Role Phone Unavailable Primary Care Provider [...] COVID-19 Vaccine (1 - 2023-2 5 season) 2025 Influenza Vaccine (#1) 2025 Zoster Vaccines (1 [...]
--- OUTSIDE RECORDS SUMMARY | 2025-08-04 14:56 | XMS_ITS | Clinical Summary ---
Author Organization [employer] [facility] it Address [address] [place] [address] Care Team Providers Care Biomass Power Plant Manager Name Role Phone Zulay Hathaway MD Primary Care Provider [phone] Surgical History Surgery Date Site/Laterality Comments SECTION [...] Cervical Cancer Screening: P ap Smear 2008 Depression Screening 11/27/2024 COVID-19 Vaccine ( - 2023-2 5 season) 2025 Influenza Vaccine (#1) 2025 HIB Vaccines Aged [...] age to complete this topic Care Teams Biomass Power Plant Manager Relationship Specialty Start Date End Date Zulay Hatahway MD [address] [place] [address] PCP - General Internal Medicine 10/31/13
--- OUTSIDE RECORDS SUMMARY | 2025-08-04 14:56 | XMS_ITS | Clinical Summary ---
Author Organization [facility] Address [address] [place] [id number] Phone Care Team Providers Care Sludge Control Attendant Name Role Phone Anjana Whitley MD [...] years ago, believes diagnosis was made at [facility] She last saw her service superintendent 2 years ago, was getting screening ultrasounds, is done with childbearing (had tubal ligation with last delivery) Patient has discussed risk reducing BSO with her prior service superintendent but has no plans in place regarding timing Patient states her last mammogram was in either August or September at [facility], she was seeing a breast specialist but they left the practice and she is unsure if she has been assigned a new provider Recommended referrals to [facility] hereditary breast/ovarian cancer genetics program, MANAGER OF ENGINEERING oncology at [place], and breast surgery at [facility], orders placed Records from [place] and [facility] requested Stressed the importance of close [...] 5 YEARS) 2005 SCREENING FOR DIABETES 2022 INFLUENZA VACCINE (#1) 2025 COVID-19 VACCINE ( - 2023-2 5 season) 2025 PAP SMEAR 03/04/2028 03/04/2025 SMOKING STATUS SCREENING [...] SEE NARRATIVE - 03/07/2025 2:38 PM EDT [address] [address] Bet Taker: Sb Redding MD MANAGER OF ENGINEERING Cytology Report FINAL DIAGNOSIS A. PAP SMEAR (THIN PREP) CE: SPECIMEN ADEQUACY: Satisfactory for evaluation; transformation zone present. INTERPRETATION: NEGATIVE FOR INTRAEPITHELIAL LESION OR MALIGNANCY. This specimen was analyzed by the automated ThinPrep Imaging System (Synacor.) and the selected gomez were reviewed by a gis specialist. Electronically Signed Out By: JASMYN Apodaca(ASCP) The [...] by real-time polymerase chain reaction (PCR) at [facility], [address] [place] [address] using the FDA-approved BD Onclarity HPV Assay with extended genotyping. Uses of the assay in scenarios other than those approved by the FDA should be considered off-label use. The accuracy and precision of this test for all other off-label specimen sources has been verified in the Cytopathology Laboratory of the [facility] and has not been cleared or [...] : 1985 (Age: 39) Sex: F Institution: [facility] Location: [facility] Date of Collection: 03/04/2025 Date of Reported: 03/07/2025 14:38 Results to: Katy Gutierrez Katy Jeffrey MD CYTOLOGY ORDER DENITA Final Result SEE NARRATIVE from Last 3 Months or Most Recently Relevant to Health Maintenance Insurance [facility] [place] [address] [address] [place] [address] [address] [address] [facility] [place] [facility] ACO [address] [place] Care Teams Sludge Control Attendant Relationship Specialty Start Date End Date Anjana Whitley MD [address] [place], [place] PCP - General Internal Medicine 02/04/25 Additional Source Comments The information contained in this document represents components of the legal health record. It is not the complete legal health record.[facility]
== END 2025-08-04 13:20 | disposition home or self-care (01) ==
LOC: HO.HMCH 12:48
PROVIDERS: PCP Internal Medicine; Visit Provider Internal Medicine
DX: N93.9 Abnormal uterine and vaginal bleeding, unspecified (principal); D50.9 Iron deficiency anemia, unspecified

== ENCOUNTER 2025-08-04 12:47 | Outpatient (REF) | payer OTHER, SELFPAY ==
[2025-08-04 13:44] LABS: MANUAL DIFF FLAG NO
[2025-08-04 14:18] LABS: Hematocrit 29.8 % (37.0-47.0); Hemoglobin 8.5 g/dl (12.0-16.0); Imm Gran Abs Auto 0.01 X10*3/uL (0.00-0.03); Imm Gran Pct Auto 0.2 % (0.0-0.4); Lymphocytes Absolute Auto 2.1 X10*3/uL (1.2-4.9); Mean Corpuscular HGB Conc 28.5 g/dl (31.0-35.0); Mean Corpuscular Hemoglobin 20.3 pg (27.0-33.0); Mean Corpuscular Volume 71.1 fL (80.0-98.0); NRBC Abs Auto 0.000 X10*3/uL (0.0-0.012); NRBC Pct Auto 0.0 /100WBC (0.0-0.2); Platelet Count 403 X10*3/uL (160-400); Red Blood Count 4.19 X10*6/uL (4.20-5.50); White Blood Count 5.7 X10*3/uL (4.8-10.8)
[2025-08-04 15:12] LABS: Iron 15 mcg/dL (30-160); Percent Iron Saturation 5 % (15-50); Total Iron Binding Capacity 307 mcg/dL (228-428); Unsaturated Iron Binding 292 ug/dL
[2025-08-04 15:18] LABS: Folate 15.3 ng/mL (> or = 4.0); Vitamin B12 515 pg/mL (200-900)
[2025-08-05 20:49] LABS: Immunoglobulin A 260 mg/dL (47-310)
== END 2025-08-04 12:48 | disposition home or self-care (01) ==
LOC: HO.LAB 12:47
PROVIDERS: PCP Internal Medicine; Visit Provider Internal Medicine
DX: E53.8 Deficiency of other specified B group vitamins (principal); D50.9 Iron deficiency anemia, unspecified; D64.9 Anemia, unspecified; N93.9 Abnormal uterine and vaginal bleeding, unspecified; Z79.899 Other long term (current) drug therapy
CPT/HCPCS: 36415; 82607; 82746; 82784; 83540; 85025; 86364; 99212